=== PATIENT | female | born 1945 | race Caucasian/White ===

== ENCOUNTER → 2017-05-20 12:28 | Outpatient (REF) | payer MEDICARE, SELFPAY ==
[2017-05-21 13:13] LABS: Basophils # 0.1 K/mm3 (0-0.2); Basophils % 0.9 % (0.1-2.0); Eosinophils # 0.5 K/mm3 (0.0-0.4); Eosinophils % 5.2 % (0.1-12.0); Hemoglobin 12.6 g/dL (12.2-16.2); Lymphocytes # 3.1 K/mm3 (0.7-4.5); Lymphocytes % 34.3 K/mm3 (10-50); Mean Corpuscular HGB Conc 30.1 g/dL (31.8-35.4); Mean Corpuscular Hemoglobin 30.6 pg (27.0-31.2); Mean Corpuscular Volume 101.6 fl (81-99); Mean Platelet Volume 9.1 fl (7.4-10.4); Monocytes # 0.4 K/mm3 (0.1-1.0); Monocytes % 4.3 % (1.7-9.3); Neutrophils % 55.2 % (37.0-80.0); Platelet Count 332 K/mm3 (142-424); Red Blood Count 4.13 M/mm3 (4.20-5.40); Red Cell Distribution Width 13.5 % (11.5-17.5); White Blood Count 9.1 K/mm3 (4.8-10.8)
[2017-05-21 13:32] LABS: Alanine Aminotransferase 21 U/L (12-78); Albumin Level 3.7 gm/dL (3.4-5.0); Albumin/Globulin Ratio 1.3 (1.1-1.8); Alkaline Phosphatase 107 U/L (46-116); Anion Gap 14.5 mEq/L (5-15); Aspartate Amino Transferase 10 U/L (15-37); Bilirubin,Total 0.2 mg/dL (0.2-1.0); Blood Urea Nitrogen 14 mg/dL (7-18); Calcium 8.9 mg/dL (8.5-10.1); Carbon Dioxide 25 mmol/L (21.0-32.0); Chloride 105 mmol/L (98-107); Chol/HDL Ratio 3.5 (1-3.5); Cholesterol 153 mg/dL (140-200); Creatinine,Serum 0.97 mg/dL (0.55-1.02); Estimated Glomerular Filt Rate 56 ml/min (>60); GFR (African American) 68 ML/MIN (>60); Globulin 2.8 gm/dl (1.3-3.2); Glucose 96 mg/dL (74-106); HDL Cholesterol 44 mg/dL (29-89); LDL Cholesterol 85 mg/dL (0-130); Potassium 4.5 mmoL/L (3.5-5.1); Sodium 140 mmol/L (136-145); T4 (Thyroxine) 6.6 ug/dl (4.7-13.3); Thyroid Stimulating Hormone 1.14 uIU/ml (0.358-3.740); Total Protein,Serum 6.5 gm/dL (6.4-8.2); Triglycerides 118 mg/dL (30-200); VLDL Cholesterol 24 mg/dL (0-40)
[2017-05-21 13:37] LABS: Hemoglobin A1C 6.1 % (0.0-7.0)
== END ==
LOC: LAB 12:28
PROVIDERS: Visit Provider Nurse Practitioner Family
DX: I10 Essential (primary) hypertension (principal); E11.9 Type 2 diabetes mellitus without complications
CPT/HCPCS: 80053; 80061; 83036; 84436; 84443; 85025

== ENCOUNTER → 2020-03-13 14:59 | Outpatient (CLI) | payer MEDICARE, MEDICAID, SELFPAY ==
[2020-03-13 17:58] LABS: Coronavirus 19 IgG Antibody Negative (Negative); Coronavirus 19 IgM Antibody Negative (Negative)
== END ==
PROVIDERS: Visit Provider Specialist
DX: Z01.818 Encounter for other preprocedural examination (principal); Z03.818 Encounter for observation for suspected exposure to other biological agents ruled out; G47.30 Sleep apnea, unspecified
CPT/HCPCS: 36415; 86328

== ENCOUNTER → 2020-03-14 20:19 | Outpatient (CLI) | payer MEDICARE, MEDICAID, SELFPAY | PROVIDERS: PCP Family Medicine; Visit Provider Specialist | DX: G47.33 Obstructive sleep apnea (adult) (pediatric) (principal) | CPT/HCPCS: 95810 ==

== ENCOUNTER 2020-05-11 01:55 | Emergency (ER) | payer MEDICARE, MEDICAID, SELFPAY ==
[2020-05-11] VITALS (9 sets, daily range): BP systolic 108–178; BP diastolic 62–100; PULSE 64–79; RESP 14–18; TEMP 36.7; O2SAT 95–100; BMI 33.1
--- NOTE | 2020-05-11 01:54 | ECG_ITS ---
APPROVED REPORT Exam: Resting ECG HR:67 bpm ECG Measurements Heart Rate 67 AXES ME 182 P 69 QRSd 84 QRS 68 QT 412 T 58 QTc 435 Conclusion Normal sinus rhythm Normal ECG Electronically signed by : Marty Silva, 05/11/2020 08:52:03
--- NOTE | 2020-05-11 02:04 | XR_ITS ---
PROCEDURE: XR CHEST PORTABLE CLINICAL HISTORY: FALL Posttraumatic pain COMPARISON: CR [id number] XR chest portable from 08/31/2017 FINDINGS: The cardiomediastinal silhouette and pulmonary vascularity are within normal limits. The lungs are clear without infiltrates, suspicious nodules, or pleural effusions. No acute bony abnormalities. IMPRESSION: No acute findings. Dictated by: Dennis Hernandez MD 05/11/2020 04:55 Dennis Hernandez MD in [facility] 05/11/2020 04:55
--- NOTE | 2020-05-11 02:04 | CT_ITS ---
PROCEDURE: CT CERVICAL SPINE WO CON CLINICAL INDICATION: TRAUMA Neck injury with pain, contusion/abrasion or hematoma, cervical sprain/strain COMPARISON: No exams were available for comparison TECHNIQUE: Axial images obtained with sagittal and coronal reformats. All CT scans at the facility use one or more dose reduction, viz: automated exposure control, ma/kV adjustment per patient size (including targeted exams where dose is matched to indication, i.e. head), or iterative reconstruction technique. Axial spiral CT scanning performed of the cervical spine beginning at the base of the skull and continuing to the upper T-spine. 3-D multiplanar reconstruction with 3-D manipulation of volumetric data set in image rendering was completed by the radiologist and/or technologist with the supervision of the radiologist on independent workstation. FINDINGS: No acute fracture or dislocation. There is alignment. There is multilevel cervical spondylosis with advanced discogenic degenerative changes at multiple levels with vertebral body fusion at C4-C5 with canal stenosis at C4-C5 and C5-C6. The lung apices are clear. There is mild cervical curvature convex right IMPRESSION: 1. No acute fracture. 2. Cervical spondylosis Dictated by: Dennis Hernandez MD 05/11/2020 05:00 Dennis Hernandez MD in [facility] 05/11/2020 05:00
--- NOTE | 2020-05-11 02:04 | XR_ITS ---
PROCEDURE: XR PELVIS 1-2V CLINICAL INDICATION: FALL Posttraumatic pain COMPARISON: No exams were available for comparison TECHNIQUE: XR Pelvis AP View FINDINGS: There are mild osteoarthritic changes of the hips No acute fracture or dislocation. No lytic or blastic change. IMPRESSION: No acute findings. Dictated by: Dennis Hernandez MD 05/11/2020 04:54 Dennis Hernandez MD in [facility] 05/11/2020 04:54
--- NOTE | 2020-05-11 02:04 | CT_ITS ---
PROCEDURE: CT HEAD/BRAIN WO CON CLINICAL INDICATION: TRAUMA Head injury with headache/pain, contusion, abrasion or hematoma COMPARISON: No exams were available for comparison TECHNIQUE: Axial images obtained. All CT scans at the facility use one or more dose reduction, viz: automated exposure control, ma/kV adjustment per patient size (including targeted exams where dose is matched to indication, i.e. head), or iterative reconstruction technique. FINDINGS: No midline shift, mass effect, intracranial hemorrhage, hydrocephalus, or extra-axial fluid collection is evident. Hyperostosis frontalis interna. Minimal scalp swelling centrally in the parietal occipital region. No mastoid effusion. No sinus air-fluid level. IMPRESSION: No acute intracranial finding Dictated by: Dennis Hernandez MD 05/11/2020 04:56 Dennis Hernandez MD in [facility] 05/11/2020 04:56
[2020-05-11 02:28] LABS: Alanine Aminotransferase 16 U/L (12-78); Albumin Level 4.3 g/dl (3.5-5.0); Alkaline Phosphatase 105 U/L (38-126); Anion Gap 9.9 mEq/L (5-15); Aspartate Amino Transferase 24 U/L (14-36); Bilirubin,Direct 0.1 mg/dl (0.0-0.4); Bilirubin,Indirect 0.4 mg/dL (0.0-0.9); Bilirubin,Total 0.5 mg/dl (0.2-1.3); Bilirubin,Unconjugated 0.5 mg/dL (0.0-1.1); Blood Urea Nitrogen 16 mg/dl (7-17); Calcium 9.8 mg/dl (8.4-10.2); Carbon Dioxide 28 mmol/L (22.0-30.0); Chloride 105 mmol/L (98-107); Creatinine Clearance Estimated 59 mL/min (50-200); Estimated Glomerular Filt Rate 54 ml/min (>60); GFR (African American) 65 ML/MIN (>60); Glucose 155 mg/dl (74-100); Potassium 3.9 mmoL/L (3.5-5.1); Sodium 139 mmol/L (136-145); Total Protein,Serum 7.2 g/dl (6.3-8.2)
[2020-05-11 02:30] LABS: Basophils # 0.1 K/mm3 (0-0.2); Eosinophils # 0.3 K/mm3 (0.0-0.4); Eosinophils % 4.3 % (0.1-12.0); Hematocrit 42.4 % (37.0-47.0); Hemoglobin 13.2 g/dL (12.2-16.2); Lymphocytes # 3.4 K/mm3 (0.7-4.5); Lymphocytes % 43.7 % (10-50); Mean Corpuscular HGB Conc 31.2 g/dL (31.8-35.4); Mean Corpuscular Hemoglobin 29.7 pg (27.0-31.2); Mean Corpuscular Volume 95.2 fl (81-99); Mean Platelet Volume 7.2 fl (7.4-10.4); Monocytes # 0.4 K/mm3 (0.1-1.0); Monocytes % 5.2 % (1.7-9.3); Neutrophils # 3.6 K/mm3 (1.8-7.8); Neutrophils % 45.9 % (37.0-80.0); Platelet Count 283 K/mm3 (142-424); Red Blood Count 4.45 M/mm3 (4.20-5.40); Red Cell Distribution Width 14.1 % (11.5-17.5); White Blood Count 7.9 K/mm3 (4.8-10.8)
[2020-05-11 02:40] LABS: Troponin I 0.06 ng/ml (0.00-0.034)
[2020-05-11 03:38] LABS: Adenovirus,PCR Not Detected (NotDetected); Bordetella Pertussis Not Detected (NotDetected); Chlamydophila Pneumoniae, PCR Not Detected (NotDetected); Coronavirus 19, PCR Not Detected (NotDetected); Coronavirus 229E Not Detected (NotDetected); Coronavirus NL63 Not Detected (NotDetected); Coronavirus OC43 Not Detected (NotDetected); Coronovirus HKU1,PCR Not Detected (NotDetected); Human Metapneumovirus Not Detected (NotDetected); Influenza A, PCR Not Detected (NotDetected); Influenza AH1, 2009 Not Detected (NotDetected); Influenza AH1, PCR Not Detected (NotDetected); Influenza AH3,PCR Not Detected (NotDetected); Influenza B, PCR Not Detected (NotDetected); Mycoplasma Pneumoniae, PCR Not Detected (NotDetected); Parainfluenza 1, PCR Not Detected (NotDetected); Parainfluenza 2, PCR Not Detected (NotDetected); Parainfluenza 3, PCR Not Detected (NotDetected); Parainfluenza 4, PCR Not Detected (NotDetected); Respiratory Syncytial Virus Not Detected (NotDetected); Rhinovirus/Enterovirus Not Detected (NotDetected)
--- NOTE | 2020-05-11 04:08 | HMH.EDSYNC ---
ED Disposition Clinical Impression: Cervical spondylosis Syncopal episodes Qualifiers: Syncope type: unspecified Qualified Code(s): R55 - Syncope and collapse Head contusion Qualifiers: Encounter type: initial encounter Contusion of head detail: scalp Qualified Code(s): S00.03XA - Contusion of scalp, initial encounter Disposition: Home, Self-Care Condition on Discharge: Good Instructions: DI for Syncope in Adults (Fainting) Additional Instructions: fluids and call pcp for follow up Referrals: Adrianna Landaverde MD [Primary Care Provider] - - Critical Care Critical Care Time: No Attestation: On 05/11/20, the high probability of a clinically significant, sudden or life threatening deterioration of the following system(s) required my full and direct attention, intervention and personal management. The time I documented below is in addition to time spent performing reported procedures but includes the following listed in this critical care notation. Medical Decision Making - Medical Records Medical records reviewed: Yes: I reviewed the patient's medical records. - [place] Inquiry Pt receiving controlled substance: No Vital Signs: 05/11/20 01:56 05/11/20 02:30 05/11/20 03:00 Temperature 98.0 F Temperature Source Oral Pulse Rate [Right Brachial] 65 69 66 Respiratory Rate 14 17 18 Blood Pressure [Right Arm] 147/80 H 149/88 H 171/99 H Blood Pressure Mean [Right Arm] 102 108 123 Blood Pressure Source [Right Arm] Automatic Cuff Automatic Cuff Automatic Cuff Blood Pressure Position [Right Arm] Sitting Supine Supine 02 Sat by Pulse Oximetry 100 98 98 Oxygen Delivery Method Room Air Room Air Room Air 05/11/20 03:30 05/11/20 04:00 05/11/20 04:30 Temperature Temperature Source Pulse Rate [Right Brachial] 68 74 64 Respiratory Rate 17 15 17 Blood Pressure [Right Arm] 176/100 H 178/98 H 108/72 L Blood Pressure Mean [Right Arm] 125 124 84 Blood Pressure Source [Right Arm] Automatic Cuff Automatic Cuff Automatic Cuff Blood Pressure Position [Right Arm] Supine Supine Supine 02 Sat by Pulse Oximetry 98 96 98 Oxygen Delivery Method Room Air Room Air Room Air 05/11/20 05:00 05/11/20 05:30 Temperature Temperature Source Pulse Rate [Right Brachial] 72 71 Respiratory Rate 17 16 Blood Pressure [Right Arm] 114/62 119/64 Blood Pressure Mean [Right Arm] 79 82 Blood Pressure Source [Right Arm] Automatic Cuff Automatic Cuff Blood Pressure Position [Right Arm] Supine Sitting 02 Sat by Pulse Oximetry 95 96 Oxygen Delivery Method Room Air Room Air - Lab Data Lab results reviewed: Yes: I reviewed the patient's lab results. Lab Results 05/11/20 02:00: WBC 7.9, RBC 4.45, Hgb 13.2, Hct 42.4, MCV 95.2, MCH 29.7, MCHC 31.2 L, RDW 14.1, Plt Count 283, MPV 7.2 L, Neut % (Auto) 45.9, Lymph % (Auto) 43.7, [place] % (Auto) 5.2, Eos % (Auto) 4.3, Baso % (Auto) 1.0, Neut # (Auto) 3.6, Lymph # (Auto) 3.4, [place] # (Auto) 0.4, Eos # (Auto) 0.3, Baso # (Auto) 0.1 05/11/20 02:00: Sodium 139, Potassium 3.9, Chloride 105, Carbon Dioxide 28, Anion Gap 9.9, BUN 16, Creatinine 1.00, Estimated Creat Clear 59, Estimated GFR 54 L, Est GFR ( Amer) 65, Glucose 155 H, Calcium 9.8, Total Bilirubin 0.5, Direct Bilirubin 0.1, Conjugated Bilirubin 0.0, Indirect Bilirubin 0.4, Unconjugated Bilirubin 0.5, AST 24, ALT 16, Alkaline Phosphatase 105, Troponin I 0.06 H, Total Protein 7.2, Albumin 4.3 05/11/20 02:00: NT-Pro-B Natriuret Pep 23.7 05/11/20 03:27: Chlamy pneumoniae PCR Not detected, Adenovirus (PCR) Not detected, B. pertussis DNA (PCR) Not detected, Coronavirus OC43 (PCR) Not detected, Coronavirus HKU1 (PCR) Not detected, Coronavirus 229E (PCR) Not detected, SARS-CoV-2 (PCR) Not detected, Coronavirus NL63 (PCR) Not detected, Human Metapneumovir PCR Not detected, Influenza A (H1) PCR Not detected, Influ A (H1N1/09) PCR Not detected, Influenza A (H3) PCR Not detected, Influenza Type A (PCR) Not detected, Influenza Type B (PCR) Not detected, M
[2020-05-11 04:17] LABS: NT Pro Brain Natriuretic Pep. 23.7 pg/mL (0-450)
[2020-05-11 04:20] LABS: Microscopic, Urine URINE MICROSCOPIC (MICROSCOPIC)
[2020-05-11 04:24] LABS: Appearance,Urine CLEAR (Clear); Bilirubin,Urine Negative (Negative); Blood, Urine Negative (Negative); Color,Urine YELLOW (Yellow); Glucose,Urine (UA) 3+ (Negative); Ketones,Urine Negative (Negative); Leukocyte Esterase,Urine Negative (Negative); Nitrate,Urine Negative (Negative); PH,Urine 6.5 (5.0-8.5); Protein,Urine Negative (Negative); Urobilinogen,Urine 0.2 EU/dl (0.2)
[2020-05-11 04:34] LABS: Bacteria,Urine Trace /lpf
--- NOTE | 2020-05-11 05:28 | PC.NURSE ---
called Kaleb per patients request for a ride home. His number is [phone]
[2020-05-11 06:14] LABS: Troponin I < 0.01 ng/ml (0.00-0.034)
== END 2020-05-11 06:28 | disposition home or self-care (01) ==
PROVIDERS: Emergency Provider Emergency Medicine; PCP Family Medicine
DX: M47.812 Spondylosis without myelopathy or radiculopathy, cervical region (principal); S00.03XA Contusion of scalp, initial encounter; W18.39XA Other fall on same level, initial encounter; Y92.019 Unspecified place in single-family (private) house as the place of occurrence of the external cause; F41.8 Other specified anxiety disorders; Z86.73 Personal history of transient ischemic attack (TIA), and cerebral infarction without residual deficits; E11.9 Type 2 diabetes mellitus without complications; E78.5 Hyperlipidemia, unspecified; R06.02 Shortness of breath; Z79.899 Other long term (current) drug therapy
CPT/HCPCS: 70450; 71045; 72125; 72170; 80048; 80076; 81001; 83880; 84484; 85025; 87581; 87633; 87798; 93005; 99283

== ENCOUNTER → 2020-05-31 12:49 | Outpatient (CLI) | payer MEDICARE, MEDICAID, SELFPAY | PROVIDERS: PCP Family Medicine; Visit Provider Nurse Practitioner Family | DX: G47.00 Insomnia, unspecified (principal); G47.33 Obstructive sleep apnea (adult) (pediatric) | CPT/HCPCS: 94762 ==

== ENCOUNTER 2021-03-01 01:08 | Emergency (ER) | payer MEDICARE, MEDICAID, SELFPAY ==
[2021-03-01 01:10] VITALS: BP 145/86; PULSE 89; RESP 22; TEMP 36.6; O2SAT 98; BMI 30.7
[2021-03-01 01:22] VITALS: BMI 28.3
--- NOTE | 2021-03-01 01:27 | XR_ITS ---
PROCEDURE INFORMATION: Exam: XR Chest Exam date and time: 03/01/2021 1:27 AM Age: 75 years old Clinical indication: Cough and shortness of breath; Patient HX: Cough, congestion. R/O covid; Additional info: Short of breath TECHNIQUE: Imaging protocol: XR of the chest. Views: 2 views. COMPARISON: CR XR CHEST PORTABLE 05/11/2020 2:31 AM FINDINGS: Lungs: Unremarkable. No consolidation. Pleural spaces: Unremarkable. No pleural effusion. No pneumothorax. Heart/Mediastinum: Unremarkable. No cardiomegaly. Bones/joints: Degenerative changes of the spine and shoulders. IMPRESSION: No evidence of acute intrathoracic disease.
--- NOTE | 2021-03-01 01:28 | ECG_ITS ---
APPROVED REPORT Exam: Resting ECG HR:79 bpm ECG Measurements Heart Rate 79 AXES VA 178 P 41 QRSd 78 QRS 58 QT 380 T 77 QTc 435 Conclusion Normal sinus rhythm with sinus arrhythmia Nonspecific T wave abnormality Abnormal ECG Electronically signed by : Marty Silva MD 03/03/2021 06:23:39
[2021-03-01 01:41] LABS: Basophils # 0.1 K/mm3 (0-0.2); Basophils % 2.2 % (0.1-2.0); Eosinophils # 0.4 K/mm3 (0.0-0.4); Eosinophils % 6.1 % (0.1-12.0); Hematocrit 43.1 % (37.0-47.0); Hemoglobin 14.4 g/dL (12.2-16.2); Lymphocytes % 35.5 % (10-50); Mean Corpuscular HGB Conc 33.3 g/dL (31.8-35.4); Mean Corpuscular Hemoglobin 30.4 pg (27.0-31.2); Mean Corpuscular Volume 91.3 fl (81-99); Mean Platelet Volume 7.9 fl (7.4-10.4); Monocytes # 0.5 K/mm3 (0.1-1.0); Monocytes % 9.4 % (1.7-9.3); Neutrophils # 2.7 K/mm3 (1.8-7.8); Neutrophils % 46.8 % (37.0-80.0); Platelet Count 245 K/mm3 (142-424); Red Blood Count 4.72 M/mm3 (4.20-5.40); Red Cell Distribution Width 13.5 % (11.5-17.5); White Blood Count 5.7 K/mm3 (4.8-10.8)
[2021-03-01 01:42] LABS: Coronavirus 19, PCR Not Detected (NotDetected); Influenza A, PCR Not Detected (NotDetected); Influenza B, PCR Not Detected (NotDetected)
[2021-03-01 01:44] LABS: Lactic Acid 0.6 mmol/L (0.7-2.1)
[2021-03-01 01:45] LABS: Alanine Aminotransferase 22 U/L (12-78); Albumin Level 4.6 g/dl (3.5-5.0); Albumin/Globulin Ratio 1.6 (1.1-1.8); Alkaline Phosphatase 108 U/L (38-126); Amylase 94 U/L (30-110); Anion Gap 10.6 mEq/L (5-15); Aspartate Amino Transferase 35 U/L (14-36); Bilirubin,Direct 0.2 mg/dl (0.0-0.4); Bilirubin,Indirect 0.2 mg/dL (0.0-0.9); Bilirubin,Total 0.4 mg/dl (0.2-1.3); Bilirubin,Unconjugated 0.2 mg/dL (0.0-1.1); Blood Urea Nitrogen 24 mg/dl (7-17); Calcium 9.8 mg/dl (8.4-10.2); Carbon Dioxide 30 mmol/L (22.0-30.0); Chloride 101 mmol/L (98-107); Creatinine Clearance Estimated 51 mL/min (50-200); Estimated Glomerular Filt Rate 54 ml/min (>60); GFR (African American) 65 ML/MIN (>60); Globulin 2.9 g/dL (1.3-3.2); Glucose 135 mg/dl (74-100); Lipase 108 U/L (23-300); Potassium 3.6 mmoL/L (3.5-5.1); Sodium 138 mmol/L (136-145); Total Protein,Serum 7.5 g/dl (6.3-8.2)
[2021-03-01 01:59] LABS: NT Pro Brain Natriuretic Pep. 53.1 pg/mL (0-450)
[2021-03-01 02:19] LABS: Troponin I < 0.01 ng/ml (0.00-0.034)
[2021-03-01 02:26] VITALS: BP 125/81; PULSE 81; O2SAT 98
--- NOTE | 2021-03-01 02:28 | HMH.EDURI ---
ED Disposition Clinical Impression: Bronchitis Disposition: Home, Self-Care Condition on Discharge: Good Instructions: DI for Acute Bronchitis Additional Instructions: use meds and call pcp for follow up Prescriptions: cephALEXin [cephALEXin 500mg capsule*] 500 mg PO TID #30 cap Transmission Status: Pending to [facility] #[id number] Referrals: Adrianna Landaverde MD [Primary Care Provider] - - Critical Care Critical Care Time: No Attestation: On 03/01/21, the high probability of a clinically significant, sudden or life threatening deterioration of the following system(s) required my full and direct attention, intervention and personal management. The time I documented below is in addition to time spent performing reported procedures but includes the following listed in this critical care notation. Medical Decision Making - Medical Records Medical records reviewed: Yes: I reviewed the patient's medical records. - [place] Inquiry Pt receiving controlled substance: No Vital Signs: 03/01/21 01:10 Temperature 97.9 F Temperature Source Oral Pulse Rate [Right] 89 Respiratory Rate 22 Blood Pressure [Right Arm] 145/86 H Blood Pressure Mean [Right Arm] 105 Blood Pressure Source [Right Arm] Automatic Cuff 02 Sat by Pulse Oximetry 98 Oxygen Delivery Method Room Air - Lab Data Lab results reviewed: Yes: I reviewed the patient's lab results. Lab Results 03/01/21 01:20: SARS-CoV-2 (PCR) Not detected, Influenza A Untype (PCR) Not detected, Influenza Type B (PCR) Not detected 03/01/21 01:28: WBC 5.7, RBC 4.72, Hgb 14.4, Hct 43.1, MCV 91.3, MCH 30.4, MCHC 33.3, RDW 13.5, Plt Count 245, MPV 7.9, Neut % (Auto) 46.8, Lymph % (Auto) 35.5, [place] % (Auto) 9.4 H, Eos % (Auto) 6.1, Baso % (Auto) 2.2 H, Neut # (Auto) 2.7, Lymph # (Auto) 2.0, [place] # (Auto) 0.5, Eos # (Auto) 0.4, Baso # (Auto) 0.1 03/01/21 01:28: Sodium 138, Potassium 3.6, Chloride 101, Carbon Dioxide 30, Anion Gap 10.6, BUN 24 H, Creatinine 1.00, Estimated Creat Clear 51, Estimated GFR 54 L, Est GFR ( Amer) 65, Glucose 135 H, Calcium 9.8, Total Bilirubin 0.4, Direct Bilirubin 0.2, Conjugated Bilirubin 0.0, Indirect Bilirubin 0.2, Unconjugated Bilirubin 0.2, AST 35, ALT 22, Alkaline Phosphatase 108, Troponin I < 0.01, Total Protein 7.5, Albumin 4.6, Globulin 2.9, Albumin/Globulin Ratio 1.6, Amylase 94, Lipase 108 03/01/21 01:28: Lactate 0.6 L 03/01/21 01:28: NT-Pro-B Natriuret Pep 53.1 Result diagrams: 03/01/21 01:28 03/01/21 01:28 Orders (Tests/Meds): ED MEDICATIONS Generic Name Dose Route Start Last Admin Trade Name Freq PRN Reason Stop Dose Admin Sodium Chloride 1,000 mls @ 999 mls/hr 03/01/21 01:30 03/01/21 02:00 Sod Chlor 0.9% 1000ml Bag IV 03/01/21 02:30 999 mls/hr .Q1H1M MARTHA Administration Discontinued Medications Generic Name Dose Route Start Last Admin Trade Name Freq PRN Reason Stop Dose Admin Dexamethasone Sodium Phosphate 10 mg 03/01/21 02:04 03/01/21 02:17 Dexamethasone 4mg/Ml 5ml Mdv IV 03/01/21 02:05 10 mg ONCE ONE Administration Methylprednisolone Sodium Succinate 125 mg 03/01/21 01:27 03/01/21 02:17 Methylprednisolone Sod Succ 125mg Vial IV 03/01/21 01:28 Not Given ONCE ONE Ondansetron HCl 4 mg 03/01/21 02:03 03/01/21 02:18 Ondansetron 4mg/2ml Vial IV 03/01/21 02:04 4 mg ONCE ONE Administration ORDERS Category Date Time Status XR chest 2V Stat Exams 03/01/21 01:27 Taken Complete Blood Count Auto Diff Stat Lab 03/01/21 01:28 Results Erythrocyte Sedimentation Rate Stat Lab 03/01/21 01:28 Results Troponin I Q3H Lab 03/01/21 04:30 Ordered Troponin I Q3H Lab 03/01/21 07:30 Ordered Urinalysis and Microscopic Stat Lab 12/16/21 01:27 Ordered - Radiology Data #1 Image(s): Chest Image Reviewed: Yes I have reviewed radiologist's interpretation Preliminary Findings: Normal/NAD - ECG Data Tracing #1 Normal Sinus Rhythm: Yes Ischemic changes:
[2021-03-01 02:30] VITALS: BP 120/81; PULSE 82; O2SAT 95
[2021-03-01 02:40] LABS: Erythrocyte Sedimentation Rate 61 mm/hr (0-30)
[2021-03-01 03:00] VITALS: BP 130/65; PULSE 81; O2SAT 95
[2021-03-01 03:05] VITALS: BP 130/65; PULSE 80; RESP 20; TEMP 36.8; O2SAT 96
== END 2021-03-01 03:10 | disposition home or self-care (01) ==
PROVIDERS: Emergency Provider Emergency Medicine; PCP Family Medicine
DX: J20.9 Acute bronchitis, unspecified (principal); Z20.822 Contact with and (suspected) exposure to COVID-19; Z79.899 Other long term (current) drug therapy; I10 Essential (primary) hypertension; E78.5 Hyperlipidemia, unspecified; E11.9 Type 2 diabetes mellitus without complications; F41.8 Other specified anxiety disorders
CPT/HCPCS: 71046; 80053; 80076; 82150; 83605; 83690; 83880; 84484; 85025; 85651; 93005; 96365; 96367; 96375; 99283; C9803; J2405; U0003; U0005

== ENCOUNTER 2021-08-17 13:25 | Emergency (ER) | payer MEDICARE, MEDICAID, SELFPAY ==
[2021-08-17 13:20] VITALS: BP 142/85; PULSE 88; RESP 16; TEMP 36.5; O2SAT 98; BMI 32.4
--- NOTE | 2021-08-17 13:31 | ECG_ITS ---
APPROVED REPORT Exam: Resting ECG HR:81 bpm ECG Measurements Heart Rate 81 AXES SC 186 P 52 QRSd 82 QRS 59 QT 367 T 65 QTc 404 Conclusion SINUS RHYTHM WITH SINUS ARRHYTHMIA NORMAL ECG UNCONFIRMED REPORT Electronically signed by : Marty Silva MD 08/17/2021 17:10:16
[2021-08-17 13:37] LABS: POC Glucose,Bedside 153 (70-110)
[2021-08-17 13:57] LABS: Chloride 104 mmol/L (98-107); Potassium 3.6 mmoL/L (3.5-5.1); Sodium 141 mmol/L (136-145)
[2021-08-17 14:00] LABS: Alanine Aminotransferase 22 U/L (12-78); Albumin Level 4.2 g/dl (3.5-5.0); Albumin/Globulin Ratio 1.6 (1.1-1.8); Alkaline Phosphatase 117 U/L (38-126); Anion Gap 11.6 mEq/L (5-15); Aspartate Amino Transferase 32 U/L (14-36); Bilirubin,Total 0.5 mg/dl (0.2-1.3); Blood Urea Nitrogen 11 mg/dl (7-17); Carbon Dioxide 29 mmol/L (22.0-30.0); Creatinine Clearance Estimated 56 mL/min (50-200); Estimated Glomerular Filt Rate 70 ml/min (>60); GFR (African American) 84 ML/MIN (>60); Globulin 2.7 g/dL (1.3-3.2); Total Protein,Serum 6.9 g/dl (6.3-8.2)
[2021-08-17 14:01] VITALS: BP 133/74; PULSE 83; RESP 13; O2SAT 97
[2021-08-17 14:01] LABS: Calcium 9.6 mg/dl (8.4-10.2); Glucose 165 mg/dl (74-100)
--- NOTE | 2021-08-17 14:17 | PC.NURSE ---
pt ambulated to restroom
[2021-08-17 14:18] LABS: Basophils # 0.1 K/mm3 (0-0.2); Basophils % 1.8 % (0.1-2.0); Eosinophils # 0.3 K/mm3 (0.0-0.4); Eosinophils % 4.2 % (0.1-12.0); Hematocrit 38.6 % (37.0-47.0); Hemoglobin 12.9 g/dL (12.2-16.2); Lymphocytes # 1.8 K/mm3 (0.7-4.5); Lymphocytes % 24.2 % (10-50); Mean Corpuscular HGB Conc 33.4 g/dL (31.8-35.4); Mean Corpuscular Hemoglobin 31.2 pg (27.0-31.2); Mean Corpuscular Volume 93.5 fl (81-99); Mean Platelet Volume 7.9 fl (7.4-10.4); Monocytes # 0.5 K/mm3 (0.1-1.0); Monocytes % 6.9 % (1.7-9.3); Neutrophils # 4.6 K/mm3 (1.8-7.8); Platelet Count 256 K/mm3 (142-424); Red Blood Count 4.13 M/mm3 (4.20-5.40); Red Cell Distribution Width 13.2 % (11.5-17.5); White Blood Count 7.3 K/mm3 (4.8-10.8)
--- NOTE | 2021-08-17 14:57 | HMH.EDGENADL ---
ED Disposition Clinical Impression: Unsteadiness on feet Fall Qualifiers: Encounter type: initial encounter Qualified Code(s): W19.XXXA - Unspecified fall, initial encounter Forehead contusion Qualifiers: Encounter type: initial encounter Qualified Code(s): S00.83XA - Contusion of other part of head, initial encounter Disposition: Home, Self-Care Condition on Discharge: Good Instructions: DI for Closed Head Injury, How to Prevent Falls Additional Instructions: Additional instructions for HEAD INJURY: See your physician as soon as possible for further evaluation. Return immediately if severe headache, vomiting, problems with vision or speech, numbness or weakness of the extremities, or severe neck pain. Referrals: Adrianna Landaverde MD [Primary Care Provider] - - Critical Care Critical Care Time: No Attestation: On 08/17/21, the high probability of a clinically significant, sudden or life threatening deterioration of the following system(s) required my full and direct attention, intervention and personal management. The time I documented below is in addition to time spent performing reported procedures but includes the following listed in this critical care notation. Medical Decision Making - [place] Inquiry Pt receiving controlled substance: No Vital Signs: 08/17/21 13:20 08/17/21 14:01 Temperature 97.7 F Temperature Source Oral Pulse Rate 83 Pulse Rate [Radial] 88 Respiratory Rate 16 13 Blood Pressure 133/74 Blood Pressure [Right Arm] 142/85 H Blood Pressure Mean 93 Blood Pressure Mean [Right Arm] 104 Blood Pressure Position [Right Arm] Sitting 02 Sat by Pulse Oximetry 98 97 Oxygen Delivery Method Room Air - Lab Data Lab Results 08/17/21 13:30: POC Glucose 153 H 08/17/21 13:40: WBC 7.3, RBC 4.13 L, Hgb 12.9, Hct 38.6, MCV 93.5, MCH 31.2, MCHC 33.4, RDW 13.2, Plt Count 256, MPV 7.9, Neut % (Auto) 63.0, Lymph % (Auto) 24.2, [place] % (Auto) 6.9, Eos % (Auto) 4.2, Baso % (Auto) 1.8, Neut # (Auto) 4.6, Lymph # (Auto) 1.8, [place] # (Auto) 0.5, Eos # (Auto) 0.3, Baso # (Auto) 0.1 06/03/22 13:40: Sodium 141, Potassium 3.6, Chloride 104, Carbon Dioxide 29, Anion Gap 11.6, BUN 11, Creatinine 0.80, Estimated Creat Clear 56, Estimated GFR 70, Est GFR ( Amer) 84, Glucose 165 H, Calcium 9.6, Total Bilirubin 0.5, AST 32, ALT 22, Alkaline Phosphatase 117, Total Protein 6.9, Albumin 4.2, Globulin 2.7, Albumin/Globulin Ratio 1.6 08/17/21 13:54: Urine Color Yellow, Urine Appearance Clear, Urine pH 7.0, Ur Specific [place] 1.015, Urine Protein Negative, Urine Glucose (UA) Negative, Urine Ketones Negative, Urine Blood Negative, Urine Nitrate Negative, Urine Bilirubin Negative, Urine Urobilinogen 2.0, Ur Leukocyte Esterase Negative, Urine RBC None, Urine WBC None, Ur Squamous Epith Cells Occasional, Urine Bacteria None Result diagrams: 08/17/21 13:40 08/17/21 13:40 - CT Data CT Scan: Head Time Received: 16:[address] Reviewed: Yes: I have viewed the radiologist's interpretation Findings Narrative: Procedure(s): CT head/brain wo con Accession Number(s): [id number] cc: Darron Hernández MD; Adrianna Landaverde MD; Denis Long MD~ FINAL REPORT CLINICAL HISTORY: head injury, balance off, fell and hit head COMPARISON: 05/11/2020 FINDINGS: Axial images of the head were obtained without contrast. Coronal reformatted images were also obtained.This study was performed with techniques to keep radiation doses as low as reasonably achievable (ALARA). Individualized dose reduction techniques using automated exposure control or adjustment of mA and/or kV according to the patient''s size were employed. There is no evidence of intracranial hemorrhage or mass. The ventricular size is within normal limits. There is no evidence of shift of the midline structures. No abnormal extra axial fluid collection is identified. No skull abnormality is seen on the bone window images. IMPRESSION: No acute intracrani
--- NOTE | 2021-08-17 15:02 | CT_ITS ---
FINAL REPORT CLINICAL HISTORY: head injury, balance off, fell and hit head COMPARISON: 05/11/2020 FINDINGS: Axial images of the head were obtained without contrast. Coronal reformatted images were also obtained.This study was performed with techniques to keep radiation doses as low as reasonably achievable (ALARA). Individualized dose reduction techniques using automated exposure control or adjustment of mA and/or kV according to the patient''s size were employed. There is no evidence of intracranial hemorrhage or mass. The ventricular size is within normal limits. There is no evidence of shift of the midline structures. No abnormal extra axial fluid collection is identified. No skull abnormality is seen on the bone window images. IMPRESSION: No acute intracranial abnormality. Reviewed, Interpreted and Dictated by Darron Hernández III, MD Transcribed by Alexia Farris Authenticated and [facility]
[2021-08-17 15:42] LABS: Microscopic, Urine URINE MICROSCOPIC (MICROSCOPIC)
[2021-08-17 15:47] LABS: Appearance,Urine CLEAR (Clear); Bilirubin,Urine Negative (Negative); Blood, Urine Negative (Negative); Color,Urine YELLOW (Yellow); Glucose,Urine (UA) Negative (Negative); Ketones,Urine Negative (Negative); Leukocyte Esterase,Urine Negative (Negative); Nitrate,Urine Negative (Negative); Protein,Urine Negative (Negative); Specific Gravity, Urine 1.015 (1.005-1.030)
--- NOTE | 2021-08-17 15:58 | PC.NURSE ---
pt and family updated on plan of care
[2021-08-17 16:20] LABS: Squamous Epithelial Cell,Urine Occasional #/hpf (0-5)
[2021-08-17 19:27] VITALS: BP 132/78; PULSE 74; RESP 16; TEMP 36.6; O2SAT 98
== END 2021-08-17 19:29 | disposition home or self-care (01) ==
PROVIDERS: Emergency Provider Emergency Medicine; PCP Family Medicine
DX: S00.83XA Contusion of other part of head, initial encounter (principal); W18.39XA Other fall on same level, initial encounter; Z91.81 History of falling; J45.909 Unspecified asthma, uncomplicated; F41.9 Anxiety disorder, unspecified; F32.A Depression, unspecified; E11.9 Type 2 diabetes mellitus without complications; E78.5 Hyperlipidemia, unspecified; I10 Essential (primary) hypertension; M81.0 Age-related osteoporosis without current pathological fracture; Z85.9 Personal history of malignant neoplasm, unspecified; Z86.73 Personal history of transient ischemic attack (TIA), and cerebral infarction without residual deficits
CPT/HCPCS: 70450; 80053; 81001; 82962; 85025; 93005; 99284

== ENCOUNTER 2022-10-18 09:15 | Emergency (ER) | payer MEDICARE, MEDICAID, SELFPAY ==
[2022-10-18] VITALS (8 sets, daily range): BP systolic 133–151; BP diastolic 68–78; PULSE 61–67; RESP 16–20; TEMP 36.4; O2SAT 95–98; BMI 31.4
--- NOTE | 2022-10-18 09:25 | CT_ITS ---
FINAL REPORT TECHNIQUE: Axial imaging of the lumbar spine was obtained without contrast. Sagittal and coronal reformatted images were also obtained and reviewed. This study was performed with techniques to keep radiation doses as low as reasonably achievable (ALARA). Individualized dose reduction techniques using automated exposure control or adjustment of mA and/or kV according to the patient's size were employed. CLINICAL HISTORY: fall, pain FINDINGS: There is no fracture. There is mild anterolisthesis of L3 on 4 and L4 on 5. There is multilevel mild neural foraminal narrowing. There is severe left renal atrophy. IMPRESSION: Multilevel degenerative change without acute bony abnormality. Reviewed, Interpreted and Dictated by Darron Hernández III, MD Transcribed by Alexia Farris Authenticated and [facility]
--- NOTE | 2022-10-18 09:32 | HMH.EDGENADL ---
Discharge Plan Disposition Patient Disposition: Home, Self-Care Condition: Good Prescriptions Prescriptions: No Action magnesium chloride 64 mg tablet,extended release 64 mg tablet extended release 64 mg PO DAILY Myrbetriq 50 mg tablet extended release 24 hr 50 mg PO DAILY Patient Comments: TAKE 1 TABLET BY MOUTH DAILY. STOP TOVIAZ hydroxyzine HCl 25 mg tablet 25 mg PO BID Patient Comments: TAKE 1/2 TO 1 TABLET BY MOUTH THREE TIMES DAILY NEEDED FOR ITCHING rosuvastatin 20 mg tablet 20 mg PO DAILY Patient Comments: TAKE 1 TABLET BY MOUTH DAILY eszopiclone [Lunesta] 1 mg tablet 1 mg PO HS Qty: 30 5RF Rx Instructions: 1 mg po qhs at 9:00PM (DME) [employer] 14 Day Sensor Kit See Rx Instructions .ROUTE .MEDSUPPLY Qty: 1 Rx Instructions: As directed duloxetine 30 mg capsule,delayed release(DR/EC) 30 mg PO DAILY alendronate 70 mg tablet 70 mg PO WEEKLY indomethacin 25 mg capsule 25 mg PO BID MDD 50 mg Qty: 60 3RF Rx Instructions: administer with food or milk aspirin [Adult Low Dose Aspirin] 81 mg tablet,delayed release (DR/EC) 81 mg PO DAILY sitagliptin phosphate 100 mg tablet 100 mg PO DAILY Patient Comments: TK 1 T PO D tramadol 50 mg tablet 50 mg PO BID PRN (Reason: pain) cyclobenzaprine 5 mg tablet 5 mg PO BID PRN (Reason: Muscle Pain) Patient Comments: TAKE 1 TABLET BY MOUTH THREE TIMES DAILY NEEDED FOR MUSCLE SPASMS meclizine 25 mg tablet 25 mg PO PRN montelukast 10 MG tablet 10 mg PO DAILY duloxetine 60 mg capsule,delayed release(DR/EC) 90 mg PO DAILY Referrals Follow up/Referrals: Adrianna Landaverde MD [Primary Care Provider] - See instructions Activity Restrictions/Add. Instructions Additional Instructions/Restrictions: Please expect pain and some soreness you may take [id number] medications as needed for your symptoms. I would recommend you follow-up with primary care doctor and/or a designer/writer to get an outpatient Holter monitor and an echo to further evaluate for structural abnormalities or electrical conduction abnormalities of your heart. Return with any ongoing or recurrent episodes of passing out chest pain or any other concerns. Clinical Impressions Clinical Impression: Near syncope Fall Qualifiers: Encounter type: initial encounter Qualified Code(s): W19.XXXA - Unspecified fall, initial encounter Blunt injury of back Qualifiers: Encounter type: initial encounter Qualified Code(s): S39.92XA - Unspecified injury of lower back, initial encounter Discharge ED Provider: John Marie General Adult HPI General Chief complaint: Fall Stated complaint: [id number] 7:00 back pain home fall Time Seen by Provider: 10/18/22 09:20 History of Present Illness HPI narrative: Patient is a 77-year-old female with a history of hypertension diabetes hyperlipidemia presenting today with back pain after a fall. She states that she felt very woozy and that she fell backwards striking the mid to low aspect of her back on the front of the chair. She states she has pain throughout the entire region of her lower back and is severe. No history of any lower extremity paralysis urinary or bowel incontinence or any other paresthesias. She denies injuries elsewhere did not hit her head or neck etc. She is not on any anticoagulation. She states that she gets lightheaded from time to time and not sure what happened today but she felt like she was about to pass out or may have lost consciousness she is not sure. No history of any cardiac abnormalities including any electrical conduction problems in the past. Her lightheadedness is resolved. No other symptoms preceding today's event. Pain is severe. Related Data Home Medications Medication Instructions Recorded Confirmed montelukast 10 mg tablet 10 mg PO DAILY Allergy symptoms 08/08/17 10/03/22
[2022-10-18 09:51] LABS: Basophils # 0.1 K/mm3 (0-0.2); Basophils % 0.6 % (0.1-2.0); Eosinophils # 0.3 K/mm3 (0.0-0.4); Eosinophils % 2.9 % (0.1-12.0); Hematocrit 44.5 % (37.0-47.0); Hemoglobin 14.1 g/dL (12.2-16.2); Lymphocytes # 2.7 K/mm3 (0.7-4.5); Mean Corpuscular HGB Conc 31.7 g/dL (31.8-35.4); Mean Corpuscular Hemoglobin 29.1 pg (27.0-31.2); Mean Platelet Volume 8.2 fl (7.4-10.4); Monocytes # 0.6 K/mm3 (0.1-1.0); Neutrophils # 6.8 K/mm3 (1.8-7.8); Neutrophils % 64.5 % (37.0-80.0); Platelet Count 247 K/mm3 (142-424); Red Blood Count 4.83 M/mm3 (4.20-5.40); Red Cell Distribution Width 13.4 % (11.5-17.5); White Blood Count 10.5 K/mm3 (4.8-10.8)
--- NOTE | 2022-10-18 10:03 | PC.NURSE ---
Pillow provided to patient nothing else needed at this time; call light within reach
--- NOTE | 2022-10-18 10:08 | ECG_ITS ---
APPROVED REPORT Exam: Resting ECG HR:62 bpm ECG Measurements Heart Rate 62 AXES LA 187 P 58 QRSd 80 QRS 66 QT 402 T 79 QTc 406 Conclusion SINUS RHYTHM WITH MARKED SINUS ARRHYTHMIA BORDERLINE ECG UNCONFIRMED REPORT Electronically signed by : Marty Silva MD 10/18/2022 17:40:37
--- NOTE | 2022-10-18 10:33 | PC.NURSE ---
Rounded on patient; patient rating pain a 8/10 sharp pain. MD notified new orders received.
[2022-10-18 10:43] LABS: Chloride 109 mmol/L (98-107); Potassium 4.4 mmoL/L (3.5-5.1); Sodium 141 mmol/L (136-145)
[2022-10-18 10:46] LABS: Alanine Aminotransferase 21 U/L (12-78); Albumin Level 3.7 g/dl (3.5-5.0); Albumin/Globulin Ratio 1.5 (1.1-1.8); Alkaline Phosphatase 96 U/L (38-126); Anion Gap 8.4 mEq/L (5-15); Aspartate Amino Transferase 24 U/L (14-36); Bilirubin,Total 0.4 mg/dl (0.2-1.3); Blood Urea Nitrogen 16 mg/dl (7-17); Carbon Dioxide 28 mmol/L (22.0-30.0); Creatinine Clearance Estimated 53 mL/min (50-200); Estimated Glomerular Filt Rate 69 ml/min (>60); GFR (African American) 84 ML/MIN (>60); Globulin 2.4 g/dL (1.3-3.2); Total Protein,Serum 6.1 g/dl (6.3-8.2)
[2022-10-18 10:47] LABS: Calcium 9.1 mg/dl (8.4-10.2); Glucose 120 mg/dl (74-100); Magnesium 2.2 mg/dl (1.6-2.3)
[2022-10-18 11:04] LABS: Troponin I < 0.01 ng/ml (0.00-0.034)
[2022-10-18 11:17] LABS: Thyroid Stimulating Hormone 2.47 uIU/mL (0.465-4.68)
== END 2022-10-18 11:35 | disposition home or self-care (01) ==
LOC: ER 09:36
PROVIDERS: Emergency Provider Student in an Organized Health Care Education/Training Program; PCP Family Medicine
DX: R55 Syncope and collapse (principal); S39.92XA Unspecified injury of lower back, initial encounter; I10 Essential (primary) hypertension; E11.9 Type 2 diabetes mellitus without complications; E78.5 Hyperlipidemia, unspecified; G47.33 Obstructive sleep apnea (adult) (pediatric); W19.XXXA Unspecified fall, initial encounter
CPT/HCPCS: 72131; 80053; 83735; 84443; 84484; 85025; 93005; 96374; 96375; 99285; J2405

== ENCOUNTER 2023-03-31 12:42 | Outpatient (CLI) | payer MEDICARE, MEDICAID, SELFPAY ==
--- NOTE | 2023-03-31 12:42 | US_ITS ---
FINAL REPORT TECHNIQUE: Ultrasound images of the kidneys and bladder were obtained. CLINICAL HISTORY: Kidney failure COMPARISON: None FINDINGS: The right kidney measures 13 cm in length. It is normal in echogenicity. There is moderate hydronephrosis. There is severe left renal atrophy measuring 4 cm in length. Cortical thinning is noted. There is no hydronephrosis. Spleen is normal in size. IMPRESSION: Severe left renal atrophy with cortical thinning. Moderate right hydronephrosis. Reviewed, Interpreted and Dictated by Darron Hernández III, MD Transcribed by Rebecca Vicente Authenticated and [facility]
== END 2023-03-31 23:59 ==
LOC: RAD 12:42
PROVIDERS: PCP Family Medicine; Visit Provider Urology
DX: N17.9 Acute kidney failure, unspecified (principal)
CPT/HCPCS: 76770

== ENCOUNTER 2023-06-05 12:24 | Day surgery (SDC) | payer MEDICARE, MEDICAID, SELFPAY ==
[2023-06-05 12:41] VITALS: BP 128/78; PULSE 67; RESP 18; TEMP 36.2; O2SAT 95; BMI 30.2
[2023-06-05] MEDS: LACTATED RINGERS 1000ML 1,000 ML 25 ML IV (12:48)
--- NOTE | 2023-06-05 13:27 | EXP.ANES.CKL ---
[facility] Disclaimer: The information contained in this section may have been updated after the patient was seen, as this information can be updated by other users. Medical History History of transient ischemic attack (TIA) Asthma Insomnia History of kidney problems NAIF on CPAP Hyperlipidemia Diabetes mellitus Surgical History History of kidney surgery History of shoulder surgery History of colonoscopy H/O: hysterectomy History of knee replacement, total Family History Other Cancer Coronary artery disease Diabetes Social History Smoking Status: Never smoker alcohol intake: never substance use type: denies use current occupational status: retired Travel in the last 8 weeks: None household members: none housing: apartment [facility] Anesthesia Checklist Patient Identification Patient Identification: Arm Band and Verbal (Name & ) Structural Data Admitted From: Home Planned Operative Procedure/s: EGD Consent for Planned Operative Procedure(s) Verified: Yes NPO Status Verified Time NPO: 00:00 Airway Assessment Mallampati Score:: Class IV C-Spine Mobility Assessed: Yes TMJ Mobility Assessed: Yes Dentition: Edentulous Neurological Assessment Level of Consciousness: Awake Hx Seizures: No Numbness or tingling in extremities: No Anesthesia Plan Anesthesia Risk discussed: Yes Anesthesia Plan: Verified ASA Class: III Anesthesia Type: MAC
[2023-06-05 13:38] VITALS: O2SAT 95
--- NOTE | 2023-06-05 13:48 | HMH.SCOPE ---
Procedure: Date: 06/05/23 Patient Date of :: 1945 Procedure Performed:: EGD & biopsies with dilation Indications:: Dysphagia, abnormal xrays Performing Provider:: Aneudy Orourke MD Referring Provider:: Shae Orourke APRN Sedation:: Propofol Procedure:: The gastroscope was gently passed through the incisoral orifice into the oral cavity and under direct visualization the esophagus was intubated. The endoscope was passed down the esophagus, through the stomach, and into the duodenum. Color, texture, mucosa, and anatomy of the esophagus, stomach, and duodenum were carefully examined with the scope. Findings:: Oropharynx: normal Esophagus: normal with distal spasm, no mucosal abnormalities, dilated with with 56F bougie dilator EG Junction: intact at 40 cm Cardia: normal Fundus: normal Body: normal, gastric sleeve anatomy Antrum: Three distinct ulcers noted, biopsied Duodenal bulb: normal Duodenum (second and third portion): normal Impression: Antral ulcers Symptomatic dysphagia treated with bougie dilation Specimens:: Gastric Recommendations:: Avoid NSAIDs & ASA products Repeat dilation in about 2-3 years as clinically indicated Complications:: None Estimated blood obtained (mL): 0 Colonoscopy Component Colonoscopy Component Was a colonoscopy performed during today's procedure?: No
[2023-06-05 13:49] VITALS: BP 127/71; PULSE 80; RESP 16; TEMP 36.5; O2SAT 90
[2023-06-05 13:59] VITALS: BP 112/51; PULSE 72; RESP 16; O2SAT 95
[2023-06-05 14:09] VITALS: BP 122/61; PULSE 75; RESP 16; O2SAT 95
[2023-06-05 14:19] VITALS: BP 130/67; PULSE 77; RESP 16; O2SAT 96
[2023-06-06 07:35] LABS: POC Glucose,Bedside 109 (70-110)
== END 2023-06-05 14:30 | disposition home or self-care (01) ==
PROVIDERS: PCP Family Medicine; Visit Provider Internal Medicine Gastroenterology
PROC: 0DJ08ZZ Inspection of Upper Intestinal Tract, Via Natural or Artificial Opening Endoscopic (ICD-10-PCS; CPT 43235; principal; 2023-06-05 13:30)
DX: K25.9 Gastric ulcer, unspecified as acute or chronic, without hemorrhage or perforation (principal); Z98.84 Bariatric surgery status; R13.10 Dysphagia, unspecified; K29.50 Unspecified chronic gastritis without bleeding; E11.9 Type 2 diabetes mellitus without complications
CPT/HCPCS: 43239; 43248; 82962; 88305; 88342

== ENCOUNTER 2023-09-11 11:00 | Outpatient (RCR) | payer MEDICARE, MEDICAID, SELFPAY | END 2023-09-11 12:10 | disposition home or self-care (01) | LOC: OT 11:00 | PROVIDERS: Visit Provider Family Medicine | DX: M19.041 Primary osteoarthritis, right hand (principal) | CPT/HCPCS: 97165 ==

== ENCOUNTER 2024-01-20 15:46 | Emergency (ER) | payer MEDICARE, MEDICAID, SELFPAY ==
[2024-01-20 15:48] VITALS: BP 138/83; PULSE 91; RESP 18; TEMP 36.6; O2SAT 96; BMI 31.7
[2024-01-20 16:02] VITALS: PULSE 73; O2SAT 97
[2024-01-20 16:18] LABS: Basophils # 0.1 K/mm3 (0-0.2); Basophils % 1.2 % (0.1-2.0); Eosinophils # 0.2 K/mm3 (0.0-0.4); Hematocrit 45.3 % (37.0-47.0); Hemoglobin 14.9 g/dL (12.2-16.2); Lymphocytes # 2.1 K/mm3 (0.7-4.5); Mean Corpuscular Volume 94.1 fl (81-99); Mean Platelet Volume 7.3 fl (7.4-10.4); Monocytes # 0.3 K/mm3 (0.1-1.0); Monocytes % 4.9 % (1.7-9.3); Neutrophils # 3.6 K/mm3 (1.8-7.8); Neutrophils % 56.9 % (37.0-80.0); Platelet Count 256 K/mm3 (142-424); Red Blood Count 4.81 M/mm3 (4.20-5.40); Red Cell Distribution Width 13.5 % (11.5-17.5); White Blood Count 6.3 K/mm3 (4.8-10.8)
[2024-01-20 16:24] LABS: Alanine Aminotransferase 29 U/L (12-78); Albumin Level 4.2 g/dl (3.5-5.0); Albumin/Globulin Ratio 1.4 (1.1-1.8); Alkaline Phosphatase 154 U/L (38-126); Aspartate Amino Transferase 36 U/L (14-36); Bilirubin,Total 0.6 mg/dl (0.2-1.3); Blood Urea Nitrogen 34 mg/dl (7-17); Calcium 9.4 mg/dl (8.4-10.2); Carbon Dioxide 21 mmol/L (22.0-30.0); Chloride 106 mmol/L (98-107); Creatinine Clearance Estimated 26 mL/min (50-200); Estimated Glomerular Filt Rate 24 ml/min (>60); GFR (African American) 29 ML/MIN (>60); Glucose 138 mg/dl (74-100); Sodium 140 mmol/L (136-145); Total Protein,Serum 7.2 g/dl (6.3-8.2)
--- NOTE | 2024-01-20 16:27 | PC.NURSE ---
bladder scan 39ml
--- NOTE | 2024-01-20 16:35 | CT_ITS ---
PROCEDURE INFORMATION: Exam: CT Abdomen And Pelvis Without Contrast Exam date and time: 01/20/2024 5:07 PM Age: 78 years old Clinical indication: Other: Oliguria; Additional info: New intra- vs post-renal ricyk, oliguria, flank pain TECHNIQUE: Imaging protocol: Computed tomography of the abdomen and pelvis without contrast. Radiation optimization: All CT scans at this facility use at least one of these dose optimization techniques: automated exposure control; mA and/or kV adjustment per patient size (includes targeted exams where dose is matched to clinical indication); or iterative reconstruction. COMPARISON: CR XR PELVIS 1-2V 05/11/2020 2:33 AM FINDINGS: Lungs: A 5 mm right middle lobe nodule noted on image 5 of series 3. No other noncalcified nodules. A 1 cm calcified nodule medial right lower lobe on image 17. Lung bases otherwise clear. Liver: Normal. No mass. Gallbladder and biliary ducts: Normal. No calcified stones. No ductal dilation. Pancreas: Normal. No ductal dilation. Spleen: Normal. No splenomegaly. Adrenal glands: Normal. No mass. Kidneys and ureters: Left kidney nonvisualized. Rytk-nf-xqjpiset scarring of the superior right kidney. Moderate right hydronephrosis to the UPJ level. No obstructing stone or other obvious obstructing lesion identified at the UPJ. Course and caliber of the right ureter are otherwise normal. Stomach and bowel: Gastric sleeve procedure. GI tract structures otherwise unremarkable with no evident wall thickening allowing for incomplete distention. Appendix: Appendix is normal. No evidence of appendicitis. Intraperitoneal space: Unremarkable. No free air. No significant fluid collection. Vasculature: Atherosclerotic changes of the aorta and iliacs noted. No evidence of aneurysm. Lymph nodes: Unremarkable. No enlarged lymph nodes. Urinary bladder: Unremarkable as visualized. Reproductive: Hysterectomy. Bones/joints: Unremarkable. No acute fracture. Soft tissues: Unremarkable. IMPRESSION: 1. Moderate right-sided hydronephrosis to the UPJ level of indeterminate etiology. This finding felt to be of greater significance given the absence of the left kidney. Urology consultation advised. 2. Additional nonemergent findings as above. 3. A 5 mm right middle lobe nodule. For patients at low risk (minimal or absent history of smoking and of other known risk factors), no routine follow-up is indicated. For patients at high risk (history of smoking or of other known risk factors), consider optional CT Chest at 12 months. (Reference: Jono) REFERENCES: Jono Valente, et al. Guidelines for Management of Incidental Pulmonary Nodules Detected on CT Images: From the Fleischner Society 2017. Radiology. 2017;284(1):228-243.
--- NOTE | 2024-01-20 16:37 | HMH.EDGENADL ---
Discharge Plan Disposition Patient Disposition: Home, Self-Care Chief Complaint: Urogenital-Female Prescriptions Prescriptions: No Action hydroxyzine HCl 25 mg tablet 25 mg PO BID Patient Comments: TAKE 1/2 TO 1 TABLET BY MOUTH THREE TIMES DAILY NEEDED FOR ITCHING rosuvastatin 20 mg tablet 20 mg PO DAILY Patient Comments: TAKE 1 TABLET BY MOUTH DAILY (DME) FreeStyle Mathew 14 Day Sensor Kit See Rx Instructions .ROUTE .MEDSUPPLY Qty: 1 Rx Instructions: As directed duloxetine 30 mg capsule,delayed release(DR/EC) 30 mg PO DAILY alendronate 70 mg tablet 70 mg PO WEEKLY Myrbetriq 50 mg tablet extended release 24 hr 50 mg PO DAILY Qty: 90 3RF oxybutynin chloride 10 mg tablet extended release 24hr 10 mg PO DAILY Qty: 90 3RF aspirin [Adult Low Dose Aspirin] 81 mg tablet,delayed release (DR/EC) 81 mg PO DAILY sitagliptin phosphate 100 mg tablet 100 mg PO DAILY Patient Comments: TK 1 T PO D tramadol 50 mg tablet 50 mg PO BID PRN (Reason: pain) cyclobenzaprine 5 mg tablet 5 mg PO BID PRN (Reason: Muscle Pain) Patient Comments: TAKE 1 TABLET BY MOUTH THREE TIMES DAILY NEEDED FOR MUSCLE SPASMS meclizine 25 mg tablet 25 mg PO NEEDED PRN (Reason: Dizziness) Jardiance 25 mg tablet 25 mg PO DAILY Patient Comments: TAKE 1 TABLET BY MOUTH DAILY trazodone 50 mg tablet 50 mg PO HS Patient Comments: TAKE 1 TO 2 TABLETS BY MOUTH EVERY NIGHT pantoprazole [Protonix] 40 mg tablet,delayed release (DR/EC) 40 mg PO DAILY Qty: 30 5RF eszopiclone [Lunesta] 2 mg tablet 2 mg PO HS Qty: 30 0RF montelukast 10 MG tablet 10 mg PO DAILY duloxetine 60 mg capsule,delayed release(DR/EC) 90 mg PO DAILY Referrals Follow up/Referrals: Adrianna Landaverde MD [Primary Care Provider] - See instructions Activity Restrictions/Add. Instructions Additional Instructions/Restrictions: Follow-up with your family doctor regarding this visit to the emergency department. Your potassium today was elevated at 5.7, follow-up for lab redraw. Creatinine improved to 0.9, BUN 21 (2.0 and 34 prior to fluids). Call to schedule follow-up with your urologist as well. Today, CT scan without any acute abnormalities. Call your family doctor to establish care for this visit to the emergency department and schedule follow-up within 48 hours to ensure improvement. If you have any worsening of your condition or any other concerning signs or symptoms, return to the emergency department or your primary care doctor for further evaluation. Clinical Impressions Clinical Impression: Oliguria, VANDANA (acute kidney injury) Instructions Patient Instructions: DI for Urinary Tract Infection (UTI), DI for Urinary Tract Infection in Children Print Language Print Language: Japanese Discharge ED Provider: Segundo Cedeño General Adult HPI General Chief complaint: Urogenital-Female Stated complaint: sent by urologist -cannot urinate Time Seen by Provider: 01/20/24 15:58 Mode of Arrival: Ambulatory Source of Information: Patient Limitations: No Limitations Description of Symptoms (Recalled from ER Triage Doc. by RN): kidney issues,urinary problems History of Present Illness HPI narrative: Please note that above description of symptoms, in this electronic medical record under categorization of recalled from ER triage doctor by RN are reflective of an initial nursing assessment, however, is not reflective of my full history and physical exam that was personally taken and clarified. Consequentially, this preceding description of symptoms, which may include the patient's categorized chief complaint in the EMR, do not reflect my personal clinical impression, and the ultimate description of history of present illness and patient stated complaints should be deferred to this section of the note. Unless stated otherwise or congruent with this section of the note, additional signs, symptoms, or incongruence should be interpreted as inaccurate with my clinical impression. Related Data Home Medications ?Medication ?Instructions ?Recorded ?Confirmed montelukast 10 mg tablet 10 mg PO DAILY Allergy symptoms 08/08/17 08/21/23 aspirin 81 mg tablet,delayed 81 mg PO DAILY Blood thinner 01/26/20 08/21/23 release (Adult Low Dose Aspirin) sitagliptin phosphate 100 mg tablet 100 mg PO DAILY Diabetes 01/26/20 08/21/23 tramadol 50 mg tablet 50 mg PO BID PRN pain 01/26/20 08/21/23 cyclobenzaprine 5 mg tablet 5 mg PO BID PRN Muscle Pain 03/29/20 08/21/23 meclizine 25 mg tablet 25 mg PO NEEDED PRN Dizziness 08/23/20 08/21/23 hydroxyzine HCl 25 mg tablet 25 mg PO BID 10/31/21 08/21/23 rosuvastatin 20 mg tablet 20 mg PO DAILY 10/31/21 08/21/23 duloxetine 60 mg capsule,delayed 90 mg PO DAILY Depression 07/30/22 08/21/23 release alendronate 70 mg tablet 70 mg PO WEEKLY 10/03/22 08/21/23 duloxetine 30 mg capsule,delayed 30 mg PO DAILY 10/03/22 08/21/23 release flash glucose sensor (FreeStyle #1 ea 10/03/22 08/21/23 Mathew 14 Day Sensor kit) empagliflozin 25 mg tablet 25 mg PO DAILY 03/27/23 08/21/23 (Jardiance) trazodone 50 mg tablet 50 mg PO HS 03/27/23 08/21/23 Previous Rx's ?Medication ?Instructions ?Recorded mirabegron 50 mg tablet,extended 50 mg PO DAILY #90 tabs 02/24/23 release 24 hr (Myrbetriq) eszopiclone 2 mg tablet (Lunesta) 2 mg PO HS insomnia #30 tabs 03/04/23 oxybutynin chloride 10 mg 10 mg PO DAILY #90 tabs 04/07/23 tablet,extended release 24 hr pantoprazole 40 mg tablet,delayed 40 mg PO DAILY #30 tabs 08/21/23 release (Protonix) Allergies Allergy/AdvReac Type Severity Reaction Status Date / Time No Known Allergies Allergy Verified 08/21/23 09:11 [facility] Disclaimer: The information contained in this section may have been updated after the patient was seen, as this information can be updated by other users. Medical History History of transient ischemic attack (TIA) Asthma Insomnia Doing better on Lunesta 2 mg p.o. good chest pain History of kidney problems NAIF on CPAP Hyperlipidemia Diabetes mellitus Surgical History History of kidney surgery History of shoulder surgery History of colonoscopy H/O: hysterectomy History of knee replacement, total Family History Other Cancer Coronary artery disease Diabetes Social History Smoking Status: Never smoker alcohol intake: never substance use type: denies use current occupational status: retired Travel in the last 8 weeks: None household members: none housing: apartment Other Medical History Have you received the Flu Vaccine for this season: Yes Have you received the Pneumonia Vaccine: Yes ROS Obtained: Yes All systems reviewed & no additional complaints except as documented Physical Exam General General appearance: alert Head Head exam: atraumatic and normocephalic Eye Eye exam: Present normal appearance, PERRL and EOMI Neck Neck exam: Present normal inspection, full ROM and trachea midline Respiratory Respiratory exam: Absent respiratory distress, wheezes, stridor, accessory muscle use or prolonged expiratory phase Cardiovascular Cardiovascular exam: Present other (Pulses equal symmetric in upper and lower extremities) Abdominal Exam Abdominal exam: Present soft; Absent distention, tenderness or pulsatile mass Extremities Exam Extremities exam: Absent edema Neurological Exam Neurological exam: Present alert, oriented X3 and CN II-XII intact; Absent motor sensory deficit Skin Skin exam: Present warm and dry; Absent diaphoresis or erythema Medical Decision Making Medical Records Medical records reviewed: Yes I reviewed the patient's medical records. Screening: Per USPSTF and CDC recommendations, given the prevalence of disease in our region, it is our hospital?s policy to screen for HIV and viral Hepatitis for all patients aged 18 and over and those with ongoing risk factors. Diego Inquiry Pt receiving controlled substance: No Diego was queried for this patient: No Vital Signs: 01/20/24 15:48 01/20/24 16:02 Temperature 97.9 F Temperature Source Oral Pulse Rate 73 Pulse Rate [Right] 91 H Respiratory Rate 18 Blood Pressure [Right Arm] 138/83 Blood Pressure Mean [Right Arm] 101 02 Sat by Pulse Oximetry 96 97 Lab Data Lab Results 01/20/24 16:09: WBC 6.3, RBC 4.81, Hgb 14.9, Hct 45.3, MCV 94.1, MCH 31.0, MCHC 33.0, RDW 13.5, Plt Count 256, MPV 7.3 L, Neut % (Auto) 56.9, Lymph % (Auto) 34.0, [place] % (Auto) 4.9, Eos % (Auto) 3.0, Baso % (Auto) 1.2, Neut # (Auto) 3.6, Lymph # (Auto) 2.1, [place] # (Auto) 0.3, Eos # (Auto) 0.2, Baso # (Auto) 0.1, Sodium 140, Potassium 4.0, Chloride 106, Carbon Dioxide 21 L, Anion Gap 17.0 H, BUN 34 H, Creatinine 2.00 H, Estimated Creat Clear 26, Estimated GFR 24 L, Est GFR ( Amer) 29 L, Glucose 138 H, Calcium 9.4, Total Bilirubin 0.6, AST 36, ALT 29, Alkaline Phosphatase 154 H, Total Protein 7.2, Albumin 4.2, Globulin 3.0, Albumin/Globulin Ratio 1.4, HIV 1&2 Antibody Rapid Nonreactive 01/20/24 17:03: Urine Color Yellow, Urine Appearance Clear, Urine pH 6.0, Ur Specific [place] 1.010, Urine Protein Negative, Urine Glucose (UA) 3+, Urine Ketones Negative, Urine Blood Negative, Urine Nitrate Negative, Urine Bilirubin Negative, Urine Urobilinogen 0.2, Ur Leukocyte Esterase Negative, Urine RBC Occasional, Urine WBC Occasional, Ur Squamous Epith Cells Occasional 01/20/24 19:27: Sodium 139, Potassium 5.7 H D, Chloride 110 H, Carbon Dioxide 20 L, Anion Gap 14.7, BUN 21 H D, Creatinine 0.90 D, Estimated Creat Clear 51, Estimated GFR 60, Est GFR ( Amer) 73 D, Glucose 142 H, Calcium 9.2 01/20/24 16:09 01/20/24 19:27 Orders (Tests/Meds): ED MEDICATIONS Generic Name Dose Route Start Last Admin Trade Name Freq PRN Reason Stop Dose Admin Sodium Zirconium Cyclosilicate 10 gm 01/20/24 20:50 Lokelma 5gm Packet PO 01/20/24 20:51 ONCE ONE Discontinued Medications Generic Name Dose Route Start Last Admin Trade Name Freq PRN Reason Stop Dose Admin Sodium Chloride 1,000 mls @ 999 mls/hr 01/20/24 16:35 01/20/24 16:44 Sod Chlor 0.9% 1000ml Bag IV 01/20/24 17:35 999 mls/hr .Q1H1M ONE Administration ORDERS Category Date Time Status CT abdomen pelvis wo con Stat Cat Scan 01/20/24 16:35 Completed BMP [Basic Metabolic Panel] Stat Lab 01/20/24 19:27 Completed CBC w/Auto Diff [Complete Blood Count Auto Diff] Stat Lab 01/20/24 16:09 Completed CMP [Comprehensive Metabolic Panel] Stat Lab 01/20/24 16:09 Completed HIV (1&2) Antibody Rapid Stat Lab 01/20/24 16:09 Completed Hep C Ab with Reflex to RNA Stat Lab 01/20/24 16:09 Received UA [Urinalysis and Microscopic] Stat Lab 01/20/24 17:03 Completed Medical Decision Narrative: 78-year-old female history of unilateral kidney failure (patient does not know which kidney has failed) due to complication during , diabetes, anxiety presenting with oliguria. Patient states that she has been drinking a little less than she usually does yesterday into today. She had a glass of milk and a quarter of a bottle of water today. Has only urinated a small amount once today. Called her urologist, urologist recommended that she come to the emergency department for further evaluation despite having no urologic capabilities here at [facility]. Patient states that she has no other symptoms other than intermittent lower back pains, unknown if these are related, but feel chronic. No nausea, vomiting, fevers, chills, dysuria, hematuria, shortness of breath, diarrhea, constipation, any other concerning symptoms. She states that she just feels generally uncomfortable, without specific complaint. History was obtained via conversation with patient, family, outside hospital chart review. On arrival, patient hemodynamically stable, alert, oriented x4, appropriate, GCS 15, moving all extremities spontaneously, pupils equal and reactive to light. Full physical exam performed and significant for chronically appearing female, no acute distress. Normotensive, nontachycardic nontender, nondistended. No flank tenderness or pain. Differential includes prerenal VANDANA, postrenal VANDANA, intrarenal VANDANA, dehydration, obstructive uropathy, nephrolithiasis, UTI, acute renal failure, among others. Patient placed on continuous cardiac monitoring and continuous pulse ox with initial blood pressure 138/83, heart rate 91, saturation 96% on room air. Patient was given 1 L fluid bolus for symptomatic management and correction of underlying abnormalities. Bladder scan with less than 50 mL. Workup independently interpreted and significant for normal CBC. Chemistry with VANDANA creatinine 2, BUN 34, concerning for intrarenal versus postrenal VANDANA. On independent interpretation of imaging, no acute intra-abdominal abnormality. Patient has stable right sided hydronephrosis compared to past imaging and outside hospital imaging. See radiology read for full review of final results. Patient was placed in observation beginning at 5 PM in order to give meds, reevaluate labs and determine need for admission versus home-going. The patient was provided IV fluids while awaiting results. Independent interpretation of results demonstrated improved BUN and creatinine at 21, 0.9 respectively. Patient's potassium elevated at 5.7 for what ever reason. Repeat was similar. I feel this is likely lab error given patient only received 1 on potassium containing fluids. Patient given Lokelma 10 g orally. On reevaluation, resting comfortably and ready to go. At this time, I feel patient is appropriate for discharge and outpatient follow-up. Total observation time 4 hours. Because patient at baseline without signs or symptoms of clinical decompensation, deemed appropriate for discharge. Results were relayed to patient who voiced understanding and were agreeable to outpatient management and follow up. I discussed my clinical impression with patient and answered all questions. At this time, the evidence for any other entities in the differential is insufficient to warrant any further testing or ED observation. This was explained as well. Advisory was given that persistent or worsening symptoms require further evaluation. I confirmed the understanding of this discussion. [employer] disclaimer Much of this encounter note is an electronic international representative spoken language to printed text. Electronic international representative of the spoken language may permit errors. Although I have reviewed the note, some errors may still exist. Critical Care Critical Care Time Critical Care Time: No
[2024-01-20] MEDS: 0.9 % SODIUM CHLORIDE 1000ML 1,000 ML 999 ML IV (16:44)
[2024-01-20 17:07] LABS: Microscopic, Urine URINE MICROSCOPIC (MICROSCOPIC)
[2024-01-20 17:11] LABS: Appearance,Urine CLEAR (Clear); Bilirubin,Urine Negative (Negative); Blood, Urine Negative (Negative); Color,Urine YELLOW (Yellow); Glucose,Urine (UA) 3+ (Negative); Ketones,Urine Negative (Negative); Leukocyte Esterase,Urine Negative (Negative); Nitrate,Urine Negative (Negative); Protein,Urine Negative (Negative); Urobilinogen,Urine 0.2 EU/dl (0.2)
[2024-01-20 17:37] LABS: HIV (1&2) Antibody Rapid NONREACTIVE (NONREACTIVE)
[2024-01-20 17:52] LABS: RBC,Urine Occasional #/hpf (0-3); WBC,Urine Occasional #/hpf (0-3)
[2024-01-20 17:53] LABS: Squamous Epithelial Cell,Urine Occasional #/hpf (0-5)
[2024-01-20 20:03] LABS: Anion Gap 14.7 mEq/L (5-15); Blood Urea Nitrogen 21 mg/dl (7-17); Calcium 9.2 mg/dl (8.4-10.2); Carbon Dioxide 20 mmol/L (22.0-30.0); Chloride 110 mmol/L (98-107); Creatinine Clearance Estimated 51 mL/min (50-200); Estimated Glomerular Filt Rate 60 ml/min (>60); GFR (African American) 73 ML/MIN (>60); Glucose 142 mg/dl (74-100); Potassium 5.7 mmoL/L (3.5-5.1); Sodium 139 mmol/L (136-145)
--- NOTE | 2024-01-20 20:25 | PC.NURSE ---
Assisted patient to the restroom, family assisted as well.
--- NOTE | 2024-01-20 20:50 | PC.NURSE ---
Lab called to notify that the repeat K is the same as before, this was relayed to Dr. Cedeño.
[2024-01-20] MEDS: LOKELMA 5GM PACKET 10 GM PO (20:52)
[2024-01-20 21:05] VITALS: BP 167/96; PULSE 77; RESP 18; TEMP 36.5; O2SAT 97
[2024-01-21 11:15] LABS: HCV Ab Non Reactive (Non Reactive)
== END 2024-01-20 21:06 | disposition home or self-care (01) ==
PROVIDERS: Emergency Provider Emergency Medicine; PCP Family Medicine
DX: N17.9 Acute kidney failure, unspecified (principal); R34 Anuria and oliguria; R33.9 Retention of urine, unspecified
CPT/HCPCS: 74176; 80048; 80053; 81001; 85025; 86803; 87389; 96360; 99284; J7030

== ENCOUNTER 2024-08-10 20:06 | Emergency (ER) | payer MEDICARE, MEDICAID, SELFPAY ==
[2024-08-10 21:33] VITALS: BP 126/79; PULSE 78; RESP 16; TEMP 37.1; O2SAT 98; BMI 31.3
--- NOTE | 2024-08-10 21:42 | XR_ITS ---
PROCEDURE INFORMATION: Exam: XR Left Wrist Exam date and time: 08/10/2024 9:46 PM Age: 79 years old Clinical indication: Injury or trauma; Fall; Other: Pain; Additional info: C/O pain TECHNIQUE: Imaging protocol: Radiologic exam of the left wrist. Views: 3 or more views. COMPARISON: CR XR HAND LT MIN 3V 08/10/2024 9:44 PM FINDINGS: Bones/joints: No acute fracture or malalignment. Osteoarthritis. Soft tissues: Unremarkable. IMPRESSION: No acute osseous findings.
--- NOTE | 2024-08-10 21:44 | XR_ITS ---
PROCEDURE INFORMATION: Exam: XR Left Hand Exam date and time: 08/10/2024 9:44 PM Age: 79 years old Clinical indication: Injury or trauma; Fall; Other: Pain; Additional info: C/O pain TECHNIQUE: Imaging protocol: Radiologic exam of the left hand. Views: 3 or more views. COMPARISON: No relevant prior studies available. FINDINGS: Bones/joints: No acute fracture or malalignment. Osteoarthritis. Soft tissues: Unremarkable. IMPRESSION: No acute osseous findings.
[2024-08-10] MEDS: ACETAMINOPHEN 500MG TAB 1000 MG PO (21:46)
--- NOTE | 2024-08-10 22:22 | CT_ITS ---
PROCEDURE INFORMATION: Exam: CT Cervical Spine Without Contrast Exam date and time: 08/10/2024 11:08 PM Age: 79 years old Clinical indication: Injury or trauma; Fall; Other: Pain; Additional info: Fall >65 pain TECHNIQUE: Imaging protocol: Computed tomography of the cervical spine without contrast. Radiation optimization: All CT scans at this facility use at least one of these dose optimization techniques: automated exposure control; mA and/or kV adjustment per patient size (includes targeted exams where dose is matched to clinical indication); or iterative reconstruction. COMPARISON: CT CERVICAL SPINE WO CON 05/11/2020 2:27 AM FINDINGS: Bones: Cervical vertebrae normal in height. No acute fracture. Dextroconvex curvature. Minimal anterolisthesis C3 on C4. Maintained craniocervical junction. Multilevel degenerative changes. Varying degrees of neural foraminal narrowing. No severe spinal canal stenosis. Lungs: Lung apices are normal. Vasculature: Bilateral carotid artery calcifications. Soft tissues: Unremarkable. IMPRESSION: No acute osseous findings.
--- NOTE | 2024-08-10 22:22 | CT_ITS ---
PROCEDURE INFORMATION: Exam: CT Head Without Contrast Exam date and time: 08/10/2024 11:07 PM Age: 79 years old Clinical indication: Injury or trauma; Fall; Other: Pain; Additional info: Fall >65 pain TECHNIQUE: Imaging protocol: Computed tomography of the head without contrast. Radiation optimization: All CT scans at this facility use at least one of these dose optimization techniques: automated exposure control; mA and/or kV adjustment per patient size (includes targeted exams where dose is matched to clinical indication); or iterative reconstruction. COMPARISON: CT HEAD/BRAIN WO CON 08/17/2021 3:19 PM FINDINGS: Brain: No acute intracranial hemorrhage, midline shift, or mass effect. Diffuse brain parenchymal volume loss. Cerebral ventricles: No ventriculomegaly. Paranasal sinuses: Visualized sinuses are unremarkable. No fluid levels. Mastoid air cells: Visualized mastoid air cells are well aerated. Bones: Unremarkable. No acute fracture. Soft tissues: Unremarkable. IMPRESSION: No acute intracranial findings.
--- NOTE | 2024-08-10 22:45 | HMH.EDGENADL ---
Discharge Plan Disposition Patient Disposition: Home, Self-Care Condition: Good Prescriptions Prescriptions: No Action hydroxyzine HCl 25 mg tablet 25 mg PO BID Patient Comments: TAKE 1/2 TO 1 TABLET BY MOUTH THREE TIMES DAILY NEEDED FOR ITCHING rosuvastatin 20 mg tablet 20 mg PO DAILY Patient Comments: TAKE 1 TABLET BY MOUTH DAILY (DME) FreeStyle Mathew 14 Day Sensor Kit See Rx Instructions .ROUTE .MEDSUPPLY Qty: 1 Rx Instructions: As directed duloxetine 30 mg capsule,delayed release(DR/EC) 30 mg PO DAILY alendronate 70 mg tablet 70 mg PO WEEKLY Myrbetriq 50 mg tablet extended release 24 hr 50 mg PO DAILY Qty: 90 3RF metformin 500 mg tablet extended release 24 hr 500 mg PO DAILY Patient Comments: TAKE 1 TABLET BY MOUTH DAILY WITH BREAKFAST indomethacin 25 mg capsule 25 mg PO BID Patient Comments: TAKE 1 CAPSULE BY MOUTH TWICE DAILY WITH MEALS (DME) Dexcom G6 Transmitter Device See Rx Instructions .ROUTE .MEDSUPPLY Qty: 1 Patient Comments: USE DIRECTED Rx Instructions: As directed (DME) Dexcom G6 Sensor Device See Rx Instructions .ROUTE .MEDSUPPLY Qty: 1 Patient Comments: PLACE 1 SENSOR ON THE SKIN FOR 10 DAYS Rx Instructions: As directed aspirin [Adult Low Dose Aspirin] 81 mg tablet,delayed release (DR/EC) 81 mg PO DAILY cyclobenzaprine 5 mg tablet 5 mg PO BID PRN (Reason: Muscle Pain) Patient Comments: TAKE 1 TABLET BY MOUTH THREE TIMES DAILY NEEDED FOR MUSCLE SPASMS meclizine 25 mg tablet 25 mg PO NEEDED PRN (Reason: Dizziness) Jardiance 25 mg tablet 25 mg PO DAILY Patient Comments: TAKE 1 TABLET BY MOUTH DAILY trazodone 50 mg tablet 50 mg PO HS Patient Comments: TAKE 1 TO 2 TABLETS BY MOUTH EVERY NIGHT pantoprazole [Protonix] 40 mg tablet,delayed release (DR/EC) 40 mg PO DAILY PRN oxybutynin chloride 10 mg tablet extended release 24hr 10 mg PO DAILY Qty: 90 3RF montelukast 10 MG tablet 10 mg PO DAILY duloxetine 60 mg capsule,delayed release(DR/EC) 90 mg PO DAILY Referrals Follow up/Referrals: Yruiy Wick DO [Staff Physician] - See instructions Adrianna Landaverde MD [Primary Care Provider] - See instructions Activity Restrictions/Add. Instructions Additional Instructions/Restrictions: You were evaluated in the emergency department today. At this time, x-rays are reassuring, however sometimes fractures can be missed on initial x-ray. We have provided you with a brace to wear pending follow-up outpatient with orthopedics or your primary care provider for repeat x-ray. Take Tylenol at home every 4-6 hours as needed for pain. Rest, ice, and elevate your hand to reduce pain and swelling. Return to the emergency department for new or worsening symptoms. Clinical Impressions Clinical Impression: Hand pain, left, Fall Instructions Patient Instructions: DI for Hand Injury Print Language Print Language: Burkinan Discharge ED Provider: Marilyn Duenas General Adult HPI General Chief complaint: PAIN Stated complaint: AO 08/10/24 1800, fell, inj left hand Time Seen by Provider: 08/10/24 21:52 Mode of Arrival: Ambulatory Source of Information: Patient Description of Symptoms (Recalled from ER Triage Doc. by RN): Patient reports tripped while going up steps. C/o pain to left wrist and hand. History of Present Illness HPI narrative: This patient is an 79-year-old female presenting to the emergency department for evaluation with concern for left hand pain after a mechanical fall. Patient reports that she tripped going up stairs, catching herself with her left hand. She developed pain in her left hand and wrist immediately. She states that she bent her glasses a little bit but did not hit her head hard. She did not lose consciousness. No pain elsewhere. She does not take blood thinners or aspirin. Related Data Home Medications ?Medication ?Instructions ?Recorded ?Confirmed montelukast 10 mg tablet 10 mg PO DAILY Allergy symptoms 08/08/17 07/22/24 aspirin 81 mg tablet,delayed 81 mg PO DAILY Blood thinner 01/26/20 07/22/24 release (Adult Low Dose Aspirin) cyclobenzaprine 5 mg tablet 5 mg PO BID PRN Muscle Pain 03/29/20 07/22/24 meclizine 25 mg tablet 25 mg PO NEEDED PRN Dizziness 08/23/20 07/22/24 hydroxyzine HCl 25 mg tablet 25 mg PO BID 10/31/21 07/22/24 rosuvastatin 20 mg tablet 20 mg PO DAILY 10/31/21 07/22/24 duloxetine 60 mg capsule,delayed 90 mg PO DAILY Depression 07/30/22 07/22/24 release alendronate 70 mg tablet 70 mg PO WEEKLY 10/03/22 07/22/24 duloxetine 30 mg capsule,delayed 30 mg PO DAILY 10/03/22 07/22/24 release flash glucose sensor (FreeStyle #1 ea 10/03/22 02/19/24 Mathew 14 Day Sensor kit) empagliflozin 25 mg tablet 25 mg PO DAILY 03/27/23 07/22/24 (Jardiance) trazodone 50 mg tablet 50 mg PO HS 03/27/23 07/22/24 blood-glucose sensor (Dexcom G6 #1 ea 02/19/24 02/19/24 Sensor device) blood-glucose transmitter (Dexcom #1 ea 02/19/24 02/19/24 G6 Transmitter device) indomethacin 25 mg capsule 25 mg PO BID 02/19/24 07/22/24 metformin 500 mg tablet,extended 500 mg PO DAILY 02/19/24 07/22/24 release 24 hr pantoprazole 40 mg tablet,delayed 40 mg PO DAILY PRN 07/22/24 release (Protonix) Previous Rx's ?Medication ?Instructions ?Recorded mirabegron 50 mg tablet,extended 50 mg PO DAILY #90 tabs 02/24/23 release 24 hr (Myrbetriq) oxybutynin chloride 10 mg 10 mg PO DAILY #90 tabs 05/11/24 tablet,extended release 24 hr Allergies Allergy/AdvReac Type Severity Reaction Status Date / Time No Known Allergies Allergy Verified 07/22/24 09:39 [facility] Disclaimer: The information contained in this section may have been updated after the patient was seen, as this information can be updated by other users. Medical History History of transient ischemic attack (TIA) Asthma Insomnia History of kidney problems NAIF on CPAP Hyperlipidemia Diabetes mellitus Surgical History History of kidney surgery History of shoulder surgery History of colonoscopy H/O: hysterectomy History of knee replacement, total Family History Other Cancer Coronary artery disease Diabetes Social History Smoking Status: Unknown if ever smoked alcohol intake: never substance use type: denies use current occupational status: retired Travel in the last 8 weeks?: None household members: none housing: apartment Have you lived/traveled outside [place] in past 30 days?: No Contact w/someone who lives/traveled outside [place] past 30 days?: No Exposure to someone with infectious disease in past 14 days?: No Do you have a fever (greater than 100.4 F or 38 C)?: No Have you tested positive for COVID-19?: No Exposed to someone with COVID-19 in past 14 days?: No Do you have a sore throat?: No Do you have a cough?: No Do you have any weakness?: No Do you have any diarrhea?: No Are you experiencing any unusual bleeding?: No Do you have any muscle aches/pain?: No Do you have any abdominal pain?: No Are you experiencing loss of taste or smell?: No Other Medical History Have you received the Flu Vaccine for this season: Yes Have you received the Pneumonia Vaccine: Yes ROS Obtained: Yes All systems reviewed & no additional complaints except as documented Physical Exam General General appearance: alert and in no apparent distress Head Head exam: atraumatic and normocephalic Eye Eye exam: Present normal appearance, PERRL and EOMI ENT ENT exam: Present normal exam, normal oropharynx, mucous membranes moist and normal external ear exam Neck Neck exam: Present normal inspection, full ROM and trachea midline; Absent tenderness Chest Chest inspection: Present normal inspection and symmetric chest wall rise; Absent tenderness Respiratory Respiratory exam: Present normal lung sounds bilaterally; Absent respiratory distress, wheezes, stridor or accessory muscle use Cardiovascular Cardiovascular exam: Present regular rate and normal rhythm Abdominal Exam Abdominal exam: Present soft; Absent distention, tenderness or guarding Extremities Exam Extremities exam: Present full ROM, tenderness and normal capillary refill Expanded Upper Extremity Exam Left: Hand L/R back image: 1. Tenderness to palpation with mild soft tissue swelling. Full range of motion distally, neurovascularly intact distally. No open wounds Back Exam Back exam: Present normal inspection and full ROM; Absent tenderness Neurological Exam Neurological exam: Present alert, oriented X3, CN II-XII intact and normal gait; Absent motor sensory deficit Psychiatric Psychiatric exam: Present normal affect and normal mood Skin Skin exam: Present warm and dry Medical Decision Making Medical Records Medical records reviewed: Yes I reviewed the patient's medical records. Screening: Per USPSTF and CDC recommendations, given the prevalence of disease in our region, it is our hospital?s policy to screen for HIV and viral Hepatitis for all patients aged 18 and over and those with ongoing risk factors. [place] Inquiry Pt receiving controlled substance: No Vital Signs: 08/10/24 21:33 Temperature 98.7 F Temperature Source Oral Pulse Rate [Right Apical] 78 Respiratory Rate 16 Blood Pressure [Right Arm] 126/79 Blood Pressure Mean [Right Arm] 94 Blood Pressure Source [Right Arm] Automatic Cuff Blood Pressure Position [Right Arm] Sitting 02 Sat by Pulse Oximetry 98 Oxygen Delivery Method Room Air Lab Data Lab results reviewed: Yes I reviewed the patient's lab results. Orders (Tests/Meds): ED MEDICATIONS Discontinued Medications Generic Name Dose Route Start Last Admin Trade Name Wagnerq PRN Reason Stop Dose Admin Acetaminophen 1,000 mg 08/10/24 21:42 08/10/24 21:46 Acetaminophen 500mg Tab PO 08/10/24 21:43 1,000 mg ONCE ONE Administration Ketorolac Tromethamine 30 mg 08/10/24 22:22 08/11/24 00:04 Ketorolac 30mg/Ml Vial IM 08/10/24 22:23 Not Given ONCE ONE ORDERS Category Date Time Status CT cervical spine wo con Stat Cat Scan 08/10/24 22:[address] head/brain wo con Stat Cat Scan 08/10/24 22:22 Completed Hand XR left minimum 3 views [XR hand LT min 3V] Stat Exams 08/10/24 21:44 Completed XR wrist LT min 3V Stat Exams 08/10/24 21:42 Completed Medical Decision Narrative: In summary, this patient is a 79-year-old female presenting to the Emergency Department for evaluation of left hand/wrist pain after trip up stairs. Differential diagnoses considered include but are not limited to hand fracture, contusion, strain/sprain, head trauma, polytrauma. Ruling out the most morbid conditions drove assessment. It should be noted patient's history includes hypertension, hyperlipidemia, diabetes which may or may not be at goal therapy. This complicates all aspects of care by increasing patient's risk for morbidity. On exam, the patient is well-appearing. She has tenderness to palpation of her left hand/wrist but is neurovascularly intact distally with no open wounds. Workup included CT head and C-spine without contrast, x-rays of the left hand and wrist. She was given oral Tylenol and IM Toradol for symptomatic improvement. I independently interpreted CT and x-ray prior to the radiologist read and noted no intracranial hemorrhage, no skull fracture, no C-spine fracture, no obvious hand fracture. Please see their read for final interpretation. On reassessment, the patient is resting comfortably and remains neurologically intact. Given the location of pain, I placed the patient in a thumb spica splint despite negative x-rays. This was a removable prefabricated splint. She tolerated this well and remained neurovascularly intact afterwards. Ultimately, I feel she is appropriate for discharge home with close follow-up on an outpatient basis for reassessment and possible repeat x-ray. Strict return precautions given Critical Care Critical Care Time Critical Care Time: No
[2024-08-11 00:04] VITALS: BP 134/68; PULSE 74; RESP 16; TEMP 36.6; O2SAT 100
== END 2024-08-11 00:05 | disposition home or self-care (01) ==
PROVIDERS: Emergency Provider Emergency Medicine; PCP Family Medicine
DX: M79.642 Pain in left hand (principal); W10.8XXA Fall (on) (from) other stairs and steps, initial encounter
CPT/HCPCS: 70450; 72125; 73110; 73130; 96372; 99285

== ENCOUNTER 2025-01-07 15:08 | Outpatient (CLI) | payer MEDICARE, MEDICAID, SELFPAY ==
--- OUTSIDE RECORDS SUMMARY | 2020-05-25 11:00 | XMS_ITS | Encounter Summary ---
[facility] Address [address] [place] [address] Care Team Providers Care Heating Equipment Repairer Name Role Phone Adrianna Landaverde DO Primary Care Provider [phone] Reason for Visit * Diagnostic Imaging (Routine) - Closed Specialty Diagnoses / Procedures Referred By Contac t Referred To Contact Diagnoses Post-menopausal Screening for osteoporosis Procedures DEXA Bone Density Axial Adrianna Landaverde DO [address] [place] [address] Phone: tel: fax: [facility] [address] [place] [address] Phone: tel: fax: Referral ID Status Reason Start Date Expiration Date Visits Re quested Visits Authorized [id number] Closed 03/27/2020 03/27/2021 1 1 Encounter Details Date Type Department Care Team (Late st Contact Info) Description 05/25/2020 10:00 AM EST Hospital Encounter [facility] [address] [place] [address] Social History Tobacco Use Types Packs/Day Years Used Date Smoking Tobacco: Never Smokeless Tobacco: Never Alcohol Use Standard Drinks/Week Comments No 0 (1 standard drink = 0.6 oz pur e alcohol) PHQ-2 Answer Date Recorded Retired PHQ-9: Brief Depression Severity Measure Score 13 07/04/2022 PHQ-2 Answer Date Recorded Patient Health Questionnaire-9 Score 8 06/25/2024 Comments No Sex and Gender Information Value Date Recorded Sex Assigned at Not on file Legal Sex Female 2:27 PM EDT Gender Identity Not on file Sexual Orientation Not on file documented as of this encounter Functional Status documented as of this encounter Plan of Treatment Upcoming Encounters Date Type Department Care Team (Late st Contact Info) Description 01/13/2025 9:00 AM EDT Office Visit [facility] [address] [id number] Adrianna Landaverde DO [address] [id number] documented as of this encounter Procedures Procedure Name Priority Date/Time Associated Diagnosis Comments DEXA BONE DENSITY AXIAL Routine 05/25/2020 10:20 AM EST Post-menopausal Screening for osteoporosis documented in this encounter Results * DEXA Bone Density Axial (05/25/2020 10:20 AM EST) Anatomical Region Laterality Modality Wrist, Hip, L-spine N/A Bone Density Narrative 06/07/2020 6:22 PM EDT Bone Density Scan Findings Consistent with Osteoporosis and Osteopenia of femur. Unable to interpret spine to possible compression. Would recommend Calcium , Vitamin D, Weight Bearing Exercises and Consider medical therapy. Follow Up Repeat Study in 2 Years Jax Dickinson MD Adrianna Landaverde DO IMG DXA ORDERABLES Final Re sult documented in this encounter Visit Diagnoses Not on filedocumented in this encounter Care Teams Heating Equipment Repairer Relationship Specialty Start Date End Date Adrianna Landaverde DO [address] [address] PCP - General Family Medicine 08/20/17 documented as of this encounter
--- OUTSIDE RECORDS SUMMARY | 2024-12-09 08:15 | XMS_ITS | Encounter Summary ---
[facility] Address [address] [place] [address] Care Team Providers Care Freight Shipping Agent Name Role Phone Adrianna Landaverde Primary Care Provider [phone] Reason for Visit * Reason Comments Hyperglycemia X couple weeks Encounter Details Date Type Department Care Team (Late st Contact Info) Description 12/09/2024 8:15 AM EDT Office Visit [facility] [address] [facility] [place] [address] Tigre Mead, PATania [address] [facility] [place] [address] Uncontrolled type 2 diabetes mellitus with hypoglycemia without coma (Primary Dx); CKD stage 2 due to type 2 diabetes mellitus; Abnormal blood sugar Social History Tobacco Use Types Packs/Day Years [...] on file documented as of this encounter Last Filed Vital Signs Vital Sign Reading Time Taken Comments Blood Pressure 122/86 12/09/2024 8:10 AM EDT Pulse 86 12/09/2024 8:10 AM EDT Temperature 36.9 C (98.4 F) 12/09/2024 8:10 AM EDT Respiratory Rate 18 12/09/2024 8:10 AM EDT Oxygen Saturation 96% 12/09/2024 8:10 AM EDT Inhaled Oxygen Concentration - - Weight 73 kg (161 lb) 12/09/2024 8:10 AM EDT Height 153.2 cm (5' 0.3 ) 12/09/2024 8:10 AM EDT Body Mass Index 31.13 12/09/2024 8:10 AM EDT documented in this encounter Progress Notes * Tigre Mead PA-C - 12/09/2024 10:07 AM EDTAssociated Problem(s): Uncontrolled type 2 diabetes mellitus with hypoglycemia without coma Diabetes is improving with treatment. Discussed with patient that her A1c demonstrates that her diabetes is well controlled and actually improving. It is unlikely that her blood sugar is contributingto her symptoms. Recommend keeping a log of abnormal blood sugars along with the date, time, and whether patient is fasting to bring to her next regular appointment if symptoms persist. Continue current treatment regimen. Reminded to bring in blood sugar diary at next visit. Regular aerobic exercise. Discussed ways to avoid symptomatic hypoglycemia. Reminded to get yearly retinal exam. Diabetes will be reassessed at next regular appointment * Tigre Mead PA-C - 12/09/2024 8:15 AM EDT Images from the original note were not included. Office Note Name: Alicia Bajwa : 1945 Chief Complaint Hyperglycemia (X couple weeks /) Subjective History of Present Illness: Alicia Bajwa is a 79 y.o. female who presents today with concerns of elevated blood sugar. Admits to noticing a higher trend in her blood sugar over the past few weeks on her Dexcom. States that last Friday it was 297 after eating breakfast. Is concerned that her medications are no longer working. Does admit to occasionally forgetting to take her medications. Has not compared Dexcom readings to a finger-stick. Patient states she feels off and more tired than normal and felt it was related to her blood sugar. Blood sugar in office was 110 (fasting) and A1c was 7.2 (improved from 7.5 6months ago). Patient does not regularly check her blood pressure at home. Does feel that her vision occasionallygets blurry when reading. No other associated signs or symptoms. No recent changes in medication. No changes in diet or lifestyle. Past Medical History: Past Medical History: Diagnosis Date AC (acromioclavicular) joint bone spurs both ankles Asthma Cancer Depression Diabetes mellitus Diverticulosis Fatty liver Hyperlipidemia Hypertension Irritable bowel syndrome DIARRHEA Stroke Past Surgical History: Past Surgical History: Procedure Laterality Date COLONOSCOPY GASTROSTOMY HYSTERECTOMY REPLACEMENT TOTAL KNEE BILATERAL ROTATOR CUFF REPAIR Immunizations: Immunization History Administered Date(s) Administered ABRYSVO (RSV, 60+ or women 32-36 wks) 03/08/2024 COVID-19 (MODERNA) 12YRS+ (SPIKEVAX) 02/26/2023 COVID-19 (MODERNA) 1st,2nd,3rd Dose Monovalent 04/26/2020, 05/24/2020, 01/20/2021, 08/14/2021 COVID-19 (PFIZER) 12YRS+ (COMIRNATY) 02/09/2024 FLUAD TRI 65YR+ 02/09/2024 Fluad Quad 65+ 01/02/2021, 11/27/2021 Fluzone >6mos 12/04/2010 Fluzone High-Dose 65+YRS 01/19/2019, 12/29/2019 Fluzone High-Dose 65+yrs 12/29/2019, 02/10/2023 Hep A / Hep B 01/03/2020, 01/25/2020 Hepatitis A 12/16/2018 Pneumococcal Conjugate 13-Valent (PCV13) 03/17/2015, 01/19/2019 Pneumococcal Conjugate 20-Valent (PCV20) 06/19/2022 Pneumococcal Polysaccharide (PPSV23) 01/26/2018 Shingrix 07/31/2022, 10/03/2022 Tdap 04/05/2014 Medications: Current Outpatient Medications: buPROPion (WELLBUTRIN) 75 MG tablet, TAKE 1 TABLET BY MOUTH TWICE DAILY, Disp: 60 tablet, Rfl: 1 alendronate (FOSAMAX) 70 MG tablet, TAKE 1 TABLET BY MOUTH EVERY 7 DAYS, TAKE WITH WATER 30 MINUTESBEFORE FIRST FOOD/DRINK, AVOID LYING DOWN FOR 30 MINUTES AFTER, Disp: 4 tablet, Rfl: 0 aspirin 81 MG EC tablet, Take 1 tablet by mouth Daily., Disp: , Rfl: azelastine (ASTELIN) 0.1 % nasal spray, Administer 2 sprays into the nostril(s) as directed by provider 2 (Two) Times a Day. Use in each nostril as directed, Disp: , Rfl: Continuous Glucose Typewriter Repairer (Dexcom G6 Typewriter Repairer) device, USE DIRECTED, Disp: 1 each, Rfl: 0 Continuous Glucose Sensor (Dexcom G6 Sensor), Place on the skin as directed by provider Every 10 (Ten) Days., Disp: 9 each, Rfl: 2 Continuous Glucose Transmitter (Dexcom G6 Transmitter) misc, Inject 1 Device under the skin into the appropriate area as directed Take As Directed. Use as directed, Disp: 1 each, Rfl: 3 DULoxetine (CYMBALTA) 30 MG capsule, Take 1 capsule by mouth Daily., Disp: 90 capsule, Rfl: 1 DULoxetine (CYMBALTA) 60 MG capsule, TAKE 1 CAPSULE BY MOUTH ONCE DAILY WITH 30MG CAPSULE, Disp: 90capsule, Rfl: 1 fluocinonide (LIDEX) 0.05 % external solution, Apply topically to the appropriate area as directed Daily., Disp: , Rfl: hydrOXYzine (ATARAX) 25 MG tablet, Take 1 tablet by mouth Every 8 (Eight) Hours As Needed for Itching., Disp: 60 tablet, Rfl: 2 indomethacin (INDOCIN) 25 MG capsule, Take 1 capsule by mouth 2 (Two) Times a Day With Meals., Disp: 60 capsule, Rfl: 2 Januvia 100 MG tablet, TAKE 1 TABLET BY MOUTH DAILY, Disp: 90 tablet, Rfl: 1 Jardiance 25 MG tablet tablet, TAKE 1 TABLET BY MOUTH DAILY, Disp: 90 tablet, Rfl: 1 meclizine (ANTIVERT) 25 MG tablet, Take 1 tablet by mouth 3 (Three) Times a Day As Needed for Dizziness., Disp: 15 tablet, Rfl: 1 metFORMIN ER (GLUCOPHAGE-XR) 500 MG 24 hr tablet, TAKE 1 TABLET BY MOUTH DAILY WITH BREAKFAST, Disp: 90 tablet, Rfl: 1 montelukast (SINGULAIR) 10 MG tablet, TAKE 1 TABLET BY MOUTH EVERY NIGHT, Disp: 90 tablet, Rfl: 1 Myrbetriq 50 MG tablet sustained-release 24 hour 24 hr tablet, TAKE 1 TABLET BY MOUTH DAILY, Disp: 30 tablet, Rfl: 1 oxybutynin XL (DITROPAN-XL) 10 MG 24 hr tablet, Take 1 tablet by mouth Daily., Disp: , Rfl: pantoprazole (PROTONIX) 40 MG EC tablet, Take 1 tablet by mouth Daily., Disp: , Rfl: rosuvastatin (CRESTOR) 20 MG tablet, TAKE 1 TABLET BY MOUTH ONCE DAILY IN THE EVENING. KEEP UPCOMING APPOINTMENTS, Disp: 90 tablet, Rfl: 1 traMADol (ULTRAM) 50 MG tablet, TAKE 1 TABLET BY MOUTH EVERY 8 HOURS NEEDED FOR MODERATE PAIN, Disp: 60 tablet, Rfl: 0 Allergies: No Known Allergies Family History: Family History Problem Relation Age of Onset Breast cancer Mother unknown Arthritis Mother Diabetes Mother Hypertension Mother Obesity Mother Liver disease Sister Hyperlipidemia Maternal Grandmother Stroke Maternal Grandmother Ovarian cancer Neg Hx Social History: Social History Socioeconomic History Marital status: Tobacco Use Smoking status: Never Smokeless tobacco: Never Vaping Use Vaping status: Never Used Substance and Sexual Activity Alcohol use: No Drug use: No Sexual activity: Never Objective Vital Signs BP 122/86 Pulse 86 Temp 98.4 ??F (36.9 ??C) Resp 18 Ht 153.2 cm (60.3 ) Wt 73 kg (161 lb) SpO2 96% BMI 31.13 kg/m?? Estimated body mass index is 31.13 kg/m?? as calculated from the following: Height as of this encounter: 153.2 cm (60.3 ). Weight as of this encounter: 73 kg (161 lb). Physical Exam Vitals and nursing note reviewed. Constitutional: Appearance: Normal appearance. HENT: Head: Normocephalic and atraumatic. Cardiovascular: Rate and Rhythm: Normal rate and regular rhythm. Heart sounds: No murmur heard. No friction rub. No gallop. Pulmonary: Effort: Pulmonary effort is normal. Breath sounds: Normal breath sounds. No wheezing, rhonchi or rales. Skin: General: Skin is warm and dry. Neurological: General: No focal deficit present. Mental Status: She is alert and oriented to person, place, and time. Psychiatric: Mood and Affect: Mood normal. Behavior: Behavior normal. Assessment and Plan Diagnoses and all orders for this visit: 1. Uncontrolled type 2 diabetes mellitus with hypoglycemia without coma (Primary) Assessment & Plan: Diabetes is improving with treatment. Discussed with patient that her A1c demonstrates that her diabetes is well controlled and actually improving. It is unlikely that her blood sugar is contributingto her symptoms. Recommend keeping a log of abnormal blood sugars along with the date, time, and whether patient is fasting to bring to her next regular appointment if symptoms persist. Continue current treatment regimen. Reminded to bring in blood sugar diary at next visit. Regular aerobic exercise. Discussed ways to avoid symptomatic hypoglycemia. Reminded to get yearly retinal exam. Diabetes will be reassessed at next regular appointment Orders: - CBC & Differential - Comprehensive Metabolic Panel 2. CKD stage 2 due to type 2 diabetes mellitus - CBC & Differential - Comprehensive Metabolic Panel 3. Abnormal blood sugar - POCT Glucose - POC Glycosylated Hemoglobin (Hb A1C) Follow Up No follow-ups on file. JERI Cherry [facility] [address] [place] [address] documented in this encounter Plan of Treatment Upcoming Encounters Date Type Department Care Team (Late st Contact Info) Description 01/13/2025 9:00 AM EDT Office Visit [facility] [address] [place] [address] Adrianna Landaverde DO [address] [place] [address] documented as of this encounter Procedures Procedure Name Priority Date/Time Associated Diagnosis Comments CBC AND DIFFERENTIAL Routine 12/09/2024 9:01 AM EDT Uncontrolled type 2 diabetes mellitus with hypoglycemia without coma CKD stage 2 due to type 2 diabetes mellitus COMPREHENSIVE METABOLIC PANEL Routine 12/09/2024 9:01 AM EDT Uncontrolled type 2 diabetes mellitus with hypoglycemia without coma CKD stage 2 due to type 2 diabetes mellitus POCT GLYCOSYLATED HEMOGLOBIN (HGB A1C) Routine 12/09/2024 8:48 AM EDT Abnormal blood sugar POCT GLUCOSE FINGERSTICK Routine 12/09/2024 8:16 AM EDT Abnormal blood sugar documented in this encounter Results * (ABNORMAL) Comprehensive Metabolic Panel (12/09/2024 9:01 AM EDT) Glucose 132(H) 65 - 99 mg/dL [facility] BUN 22.0 8.0 - 23.0 mg/dL [facility] Creatinine 1.05(H) 0.57 - 1.00 mg/dL [facility] EGFR Result 53.8(L) >60.0 mL/min/1.7 3 [facility] Comment: GFR Categories in Chronic Kidney Disease (CKD) GFR Category GFR (mL/min/1.73) Interpretation G1 90 or greater Normal or high (1) G2 60-89 Mild decrease (1) G3a 45-59 Mild to moderate decrease G3b 30-44 Moderate to severe decrease G4 15-29 Severe decrease G5 14 or less Kidney failure (1)In the absence of evidence of kidney disease, neither GFR category G1 or G2 fulfill the criteria for CKD. eGFR calculation 2020 CKD-EPI creatinine equation, which does not include race as a factor BUN/Creatinine Ratio 21.0 7.0 - 25.0 [facility] Sodium 144 136 - 145 mmol/L [facility] Potassium 4.1 3.5 - 5.2 mmol/L [facility] Chloride 105 98 - 107 mmol/L [facility] Total CO2 23.6 22.0 - 29.0 mmol/L [facility] Calcium 9.9 8.6 - 10.5 mg/dL [facility] Total Protein 6.9 6.0 - 8.5 g/dL [facility] Albumin 4.3 3.5 - 5.2 g/dL [facility] Globulin 2.6 gm/dL [facility] A/G Ratio 1.7 g/dL [facility] Total Bilirubin 0.3 0.0 - 1.2 mg/dL [facility] Alkaline Phosphatase 85 39 - 117 U/L [facility] AST (SGOT) 22 1 - 32 U/L [facility] ALT (SGPT) 19 1 - 33 U/L [facility] Blood 12/09/2024 9:01 AM EDT 12/09/2024 Narrative [facility] ([facility]) - 12/10/2024 3:07 AM EDT Performed at: [address] [place] [id number] Compound Filler: Drew Dos Santos MD, Phone: [phone] Patient Fasting: N Tigre Mead PA-C LAB BLOOD ORDERABLES Final R esult [facility] ([facility]) [address] [place] [address], [facility] [address] [place] [address], * (ABNORMAL) CBC & Differential (12/09/2024 9:01 AM EDT) [facility] WBC 9.77 3.40 - 10.80 10*3/mm3 [facility] RBC 4.67 3.77 - 5.28 10*6/mm3 [facility] Hemoglobin 14.4 12.0 - 15.9 g/dL [facility] Hematocrit 44.4 34.0 - 46.6 % [facility] MCV 95.1 79.0 - 97.0 fL [facility] MCH 30.8 26.6 - 33.0 pg [facility] MCHC 32.4 31.5 - 35.7 g/dL [facility] RDW 13.3 12.3 - 15.4 % [facility] Platelets 246 140 - 450 10*3/mm3 [facility] Neutrophil Rel % 53.9 42.7 - 76.0 % [facility] Lymphocyte Rel % 35.5 19.6 - 45.3 % [facility] Monocyte Rel % 6.8 5.0 - 12.0 % [facility] Eosinophil Rel % 3.1 0.3 - 6.2 % [facility] Basophil Rel % 0.5 0.0 - 1.5 % [facility] Neutrophils Absolute 5.27 1.70 - 7.00 10*3/mm3 [facility] Lymphocytes Absolute 3.47(H) 0.70 - 3.10 10*3/mm3 [facility] Monocytes Absolute 0.66 0.10 - 0.90 10*3/mm3 [facility] Eosinophils Absolute 0.30 0.00 - 0.40 10*3/mm3 [facility] Basophils Absolute 0.05 0.00 - 0.20 10*3/mm3 [facility] Immature Granulocyte Rel % 0.2 0.0 - 0.5 % [facility] Immature Grans Absolute 0.02 0.00 - 0.05 10*3/mm3 [facility] nRBC 0.0 0.0 - 0.2 /100 WBC [facility] Blood 12/09/2024 9:01 AM EDT 12/09/2024 Narrative [facility] ([facility]) - 12/10/2024 3:07 AM EDT Performed at: [address] [place] [address] [id number] Compound Filler: Drew Dos Santos MD, Phone: [phone] Patient Fasting: N us Tigre Mead PA-C LAB BLOOD ORDERABLES Final R esult [facility] ([facility]) [address] [place] [address], [place] [phone] [facility] [address] [place] [address], [place] [phone] * (ABNORMAL) POC Glycosylated Hemoglobin (Hb A1C) (12/09/2024 8:48 AM EDT) [facility] Hemoglobin A1C 7.2(A) 4.5 - 5.7 % [facility] Lot Number [id number] [facility] Expiration Date 06/17/2026 [facility] Blood 12/09/2024 8:48 AM EDT us Tigre Mead PA-C POINT OF CARE TEST ORDERABLE S Final Result [facility]
[address] [place] [address], * POCT Glucose (12/09/2024 8:16 AM EDT) Glucose 110 70 - 130 mg/dL Blood 12/09/2024 8:16 AM EDT Tigre Mead PA-C POINT OF CARE TEST ORDERABLE S Final Result documented in this encounter Visit Diagnoses Diagnosis Uncontrolled type 2 diabetes mellitus with hypoglycemia without coma- Primary CKD stage 2 due to type 2 diabetes mellitus Abnormal blood sugar Other abnormal glucose documented in this encounter Additional Health Concerns Assessment Noted Time PHQ-2 Depression Total Score: 3 08/13/19 24 11:02 AM EDT documented as of this encounter Care Teams Freight Shipping Agent Relationship Specialty Start Date End Date Adrianna Landaverde DO [address] [facility] [place] [address] PCP - General Family Medicine 08/20/17 documented as of this encounter
--- NOTE | 2025-01-07 15:11 | XR_ITS ---
FINAL REPORT CLINICAL HISTORY: Pain following fall x 1 week ago FINDINGS: No fracture is identified. There is moderate to severe diffuse degenerative disc disease. Moderate facet arthropathy is identified. Alignment is normal. IMPRESSION: Advanced degenerative changes without fracture. Recommend MRI should symptoms persist. Reviewed, Interpreted and Dictated by Giles Hennessy MD Transcribed by Alexia Farris Authenticated and [facility]
--- OUTSIDE RECORDS SUMMARY | 2025-01-07 15:11 | XMS_ITS | Encounter Summary ---
[facility] Address [address] [place] [address] Care Team Providers Care Packer Fuser Name Role Phone Adrianna Landaverde DO Primary Care Provider [phone] Reason for Visit * Reason Comments Med Refill Encounter Details Date Type Department Care Team ([facility] Contact Info) Description 12/13/2024 Refill [facility] [address] [place] [address] Adrianna Landaverde DO [address] [place] [address] Type 2 diabetes mellitus with hyperglycemia, without long-term current use of insulin Social History Tobacco Use Types Packs/Day Years [...] on file documented as of this encounter Plan of Treatment Upcoming Encounters Date Type Department Care Team ([facility] Contact Info) Description 01/13/2025 9:00 AM EDT Office Visit [facility] [address] [place] [address] Adrianna Landaverde DO [address] [place] [address] documented as of this encounter Visit Diagnoses Diagnosis Type 2 diabetes mellitus with hyperglycemia, without long-term current use of insulin documented in this encounter Additional Health Concerns Assessment Noted Time PHQ-2 Depression Total Score: 3 08/13/19 24 11:02 AM EDT documented as of this encounter Care Teams Packer Fuser Relationship Specialty Start Date End Date Adrianna Landaverde DO [address] [place] [address] PCP - General Family Medicine 08/20/17 documented as of this encounter
--- OUTSIDE RECORDS SUMMARY | 2025-01-07 15:11 | XMS_ITS | Encounter Summary ---
[facility] [address] [place] [address] Care Team Providers Care Metalsmith Name Role Phone Adrianna Landaverde DO Primary Care Provider [phone] Encounter Details Date Type Department Care Team ([facility] Contact Info) Description 12/14/2024 Refill [facility] [address] [place] [address] Adrianna Landaverde DO [address] [place] [address] Moderate episode of recurrent major depressive disorder Social History Tobacco Use Types Packs/Day Years [...] Upcoming Encounters Date Type Department Care Team ([facility] Contact Info) Description 01/13/2025 9:00 AM EDT Office Visit [facility] [address] [place] [address] Adrianna Landaverde DO [address] [place] [address] documented as of this encounter Visit Diagnoses Diagnosis Moderate episode of recurrent major depressive disorder documented in this encounter Additional Health Concerns Assessment Noted Time PHQ-2 Depression Total Score: 3 08/13/19 24 11:02 AM EDT documented as of this encounter Care Teams Metalsmith Relationship Specialty Start Date End Date Adrianna Landaverde DO [address] [place] [address] PCP - General Family Medicine 08/20/17 documented as of this encounter
--- OUTSIDE RECORDS SUMMARY | 2025-01-07 15:11 | XMS_ITS | Data Portability ---
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 14:03:09 OBGyn Episode No OBEpisode recorded.
--- OUTSIDE RECORDS SUMMARY | 2025-01-07 15:11 | XMS_ITS | Encounter Summary ---
[facility] Address [address] [place] [address] Care Team Providers Care Slat Basket Maker Name Role Phone Adrianna Landaverde DO Primary Care Provider [phone] Encounter Details Date Type Department Care Team ([facility] Contact Info) Description 12/10/2024 Results Follow-Up [facility] MED[facility] [address] [facility] [place] [address] Tigre Mead, PAKristenC [address] [place] [address] Social History Tobacco Use Types Packs/Day Years [...] Upcoming Encounters Date Type Department Care Team ([facility] Contact Info) Description 01/13/2025 9:00 AM EDT Office Visit [facility] FAMILY MEDICINE [address] [facility] [place] [address] Adrianna Landaverde DO [address] [place] [address] documented as of this encounter Visit Diagnoses Not on filedocumented in this encounter Additional Health Concerns Assessment Noted Time PHQ-2 Depression Total Score: 3 08/13/19 24 11:02 AM EDT documented as of this encounter Care Teams Slat Basket Maker Relationship Specialty Start Date End Date Adrianna Landaverde DO [address] [place] [address] PCP - General Family Medicine 08/20/17 documented as of this encounter
--- OUTSIDE RECORDS SUMMARY | 2025-01-07 15:11 | XMS_ITS | Encounter Summary ---
Author Organization [facility] Address [address] [place] [address] Care Team Providers Care Roadmaster Name Role Phone Adrianna Landaverde DO Primary Care Provider [phone] Encounter Details Date Type Department Care Team ([facility] st Contact Info) Description 12/13/2024 Telephone [facility] [address] [place] [address] Adrianna Landaverde DO [address] [facility] [place] [address] Social History Tobacco Use Types [...] on file documented as of this encounter Miscellaneous Notes * Telephone Encounter - Rylie Simpson RegSched Rep - 12/14/2024 9:16 AM EDT SPOKE WITH PATIENT REGARDING NEEDING AN APPOINTMENT, NOTED THAT SHE ALREADY HAD AN APPOINTMENT FOR 01/13 AND OFFERED TO GET THAT RESCHEDULED TO BE SEEN SOONER. PATIENT DECLINED SAYING THAT HER SWELLING HAS WENT DOWN AND WILL JUST KEEP THAT ORIGINAL APPOINTMENT AND DISCUSS IT THEN. * Telephone Encounter - Stuart Pearson RegSched Rep - 12/13/2024 11:01 AM EDT Caller: Alicia Bajwa Relationship: Self Best call back number: Telephone Information: What medication are you requesting: MEDICINE FOR SWELLING IN FEET AND LEGS What are your current symptoms: SWOLLEN FEET AND LEGS How long have you been experiencing symptoms: ABOUT A WEEK OR SO If a prescription is needed, what is your preferred pharmacy and phone number: [id number] - [place], [place] - [address] [address] [address] - [phone] [facility] [phone] Additional notes: PLEASE CALL PATIENT WHEN RX IS SENT IN, OR IF REQUEST IS DENIED documented in this encounter Plan of Treatment Upcoming Encounters Date Type Department Care Team (Late st Contact Info) Description 01/13/2025 9:00 AM EDT Office Visit [facility] [address] [place] [id number] Adrianna Landaverde DO [address] [place] [address] documented as of this encounter Visit Diagnoses Not on filedocumented in this encounter Additional Health Concerns Assessment Noted Time PHQ-2 Depression Total Score: 3 08/13/19 24 11:02 AM EDT documented as of this encounter Care Teams Roadmaster Relationship Specialty Start Date End Date Adrianna Landaverde DO [address] [place] [address] PCP - General Family Medicine 08/20/17 documented as of this encounter
--- OUTSIDE RECORDS SUMMARY | 2025-01-07 15:11 | XMS_ITS | Clinical Summary ---
Author Organization [facility] ([place], [place], [place], [place]) Address [address] [place] [address] Care Team Providers Care Lead Cook Name Role Phone Unavailable Primary Care Provider Unavailabl e Social History Tobacco Use Types Packs/Day Years Used Date Smoking Tobacco: Never Assessed Comments Unknown Sex and Gender Information Value Date Recorded Sex Assigned at Not on file Legal Sex Female 3:42 PM CDT Gender Identity Not on file Sexual Orientation Not on file Plan of Treatment Not on file
--- OUTSIDE RECORDS SUMMARY | 2025-01-07 15:11 | XMS_ITS | Encounter Summary ---
Author Organization Healthcare Address [address] [place] [address] Care Team Providers Care Foundry Engineer Name Role Phone Adrianna Landaverde Primary Care Provider [phone] Jocelyne Olmstead PA Unavailable [phone] Encounter Details Date Type Department Care Team (Late Contact Info) Description 01/20/2024 Orders Only External Location [address] [place] [address] Provider, External Social History Tobacco Use Types Packs/Day Years Used Date Smoking Tobacco: Never Smokeless Tobacco: Never Alcohol Use Standard Drinks/Week Comments Not Currently 0 (1 standard drink = 0.6 oz pur e alcohol) PHQ-2 Answer Date Recorded Patient Health Questionnaire-2 Score 0 07/24/2023 Comments Unknown Sex and Gender Information Value Date Recorded Sex Assigned at Not on file Legal Sex Female 7:50 PM EDT Gender Identity Not on file Sexual Orientation Not on file documented as of this encounter Plan of Treatment Upcoming Encounters Date Type Department Care Team (Late Contact Info) Description 03/03/2025 12:00 PM EST Office Visit [facility]phrology, Bone & Mineral Metabolism [address], [address] [place] [address] Jimenez Stevens MD [address] [place] [address] 08/04/2025 10:00 AM EDT Appointment [facility] Ultrasound [address] [place] [address] 08/04/2025 11:30 AM EDT Office Visit Medical Office Building Urology [address], [address] [place] [address] KathleenVega ospinayssa Beatriz, DESTATICIZER FEEDER [address] [place] [address] documented as of this encounter Procedures Procedure Name Priority Date/Time Associated Diagnosis Comments CT OUTSIDE IMAGES 01/20/2024 5:07 PM EST documented in this encounter Results * CT OUTSIDE IMAGES (01/20/2024 5:07 PM EST) Anatomical Region Laterality Modality Computed Tomogra phy 01/20/2024 5:07 PM EST us External Provider IMG CT PROCEDURES Final Result documented in this encounter Visit Diagnoses Not on filedocumented in this encounter Additional Health Concerns Assessment Noted Time A fall risk assessment has been complete d for the patient 07/24/2023 3:38 PM EDT A Body Mass Index follow-up plan has been documented for the patient 07/30/2023 10:11 PM EDT documented as of this encounter Care Teams Foundry Engineer Relationship Specialty Start Date End Date Adrianna Landaverde DO [address] [place] [address] PCP - General 06/12/23 Jocelyne Olmstead PA [address] [place] [address] Physician Buggy Driver Urology 06/12/23 documented as of this encounter
--- OUTSIDE RECORDS SUMMARY | 2025-01-07 15:11 | XMS_ITS | Clinical Summary ---
Author Organization Healthcare Address [address] [place] [address] Care Team Providers Care Attache Name Role Phone Adrianna Landaverde Primary Care Provider [phone] Jocelyne Olmstead PA Unavailable [phone] Allergies No known active allergies Medications Januvia 100 MG tablet Take 1 tablet (100 mg) by mouth 1 (one) time each day. 4 Active montelukast (Singulair) 10 MG tablet Take 1 tablet (10 mg) by mouth every night. 4 Active DULoxetine (Cymbalta) [address] capsule TAKE 1 CAPSULE BY MOUTH ONCE DAILY. TAKE WITH 30MG 4 Active DULoxetine (Cymbalta) [address] capsule TAKE 1 CAPSULE BY MOUTH ONCE DAILY WITH 60 MG 4 Active oxybutynin XL (Ditropan-XL) 10 MG 24 hr tablet Take 1 tablet (10 mg) by mouth 1 (one) time each day. 4 Active aspirin 81 MG EC tablet Take 1 tablet (81 mg) by mouth 1 (one) time each day. Active traMADol (Ultram) 50 MG tablet TAKE 1 TABLET BY MOUTH EVERY 8 HOURS NEEDED FOR MODERATE PAIN 4 Active azelastine (Astelin) 0.1 % nasal spray Administer 2 sprays into affected nostril(s) twice a day. Active eszopiclone (Lunesta) 1 MG tablet TAKE 2 TABLETS BY MOUTH AT 9 PM FOR CHRONIC INSOMNIA. MAX DAILY DOSE IS 2 TABLETS 3 Active Myrbetriq 50 MG tablet Take 1 tablet (50 mg) by mouth 1 (one) time each day. 4 Active Continuous Blood Gluc Sectionizer (Dexcom G6 per assessment nurse) device USE DIRECTED 3 Active Continuous Blood Gluc Sensor (Dexcom G6 Sensor) misc USE 1 UNIT DIRECTED 4 Active Continuous Blood Gluc Transmit (Dexcom G6 transmitter) misc USE DIRECTED TO MONITOR BLOOD SUGAR 3 Active meclizine (Antivert) 25 MG tablet TAKE 1 TABLET BY MOUTH THREE TIMES DAILY NEEDED FOR DIZZINESS 3 Active alendronate (Fosamax) 70 MG tablet 4 Active hydrOXYzine HCl (Atarax) 25 MG tablet TAKE 1 TO 2 TABLETS BY MOUTH EVERY 8 HOURS NEEDED FOR ITCHING 4 Active rosuvastatin (Crestor) 20 MG tablet 4 Active Jardiance 25 MG Take 1 tablet (25 mg) by mouth 1 (one) time each day. 4 Active metFORMIN XR (Glucophage-XR) 500 MG 24 hr tablet Take 1 tablet (500 mg) by mouth 1 (one) time each day with breakfast. 4 Active pantoprazole (Protonix) 40 MG EC tablet Take 1 tablet (40 mg) by mouth 1 (one) time each day. 4 Active Family History Medical History Relation Name Comments Cardiac Devices Pacemaker Present Mother Lung cancer Mother Relation Name Status Comments Mother Social History Tobacco Use Types Packs/Day Years Used Date Smoking Tobacco: Never Smokeless Tobacco: Never Tobacco Cessation:Counseling Given: Not Answered Alcohol Use Standard Drinks/Week Comments Not Currently 0 (1 standard drink = 0.6 oz pur e alcohol) PHQ-2 Answer Date Recorded Patient Health Questionnaire-2 Score 0 08/05/2024 PHQ-9 Answer Date Recorded Patient Health Questionnaire-9 Score 0 08/05/2024 Comments Unknown Sex and Gender Information Value Date Recorded Sex Assigned at Not on file Legal Sex Female 7:50 PM EDT Gender Identity Not on file Sexual Orientation Not on file Last Filed Vital Signs Vital Sign Reading Time Taken Comments Blood Pressure 127/74 03/02/2024 2:43 PM EST Pulse 68 03/02/2024 2:43 PM EST Temperature 37.1 C (98.7 F) 08/05/2024 12:51 PM EDT Respiratory Rate 18 03/02/2024 2:43 PM EST Oxygen Saturation 97% 08/05/2024 12:51 PM EDT Inhaled Oxygen Concentration - - Weight 73 kg (160 lb 15 oz) 08/05/2024 12:51 PM EDT Height 149.9 cm (4' 11 ) 08/05/2024 12:51 PM EDT Body Mass Index 32.51 08/05/2024 12:51 PM EDT Plan of Treatment Upcoming Encounters Date Type Department Care Team (Late st Contact Info) Description 03/03/2025 12:00 PM EST Office Visit [facility] [place] [facility], [facility] Mineral Metabolism [address], [address] [place] [address] Jimenez Stevens MD [address] [place] [address] 08/04/2025 10:00 AM EDT Appointment [facility] Ultrasound [address] [place] [address] 08/04/2025 11:30 AM EDT Office Visit Medical Office Building Urology [address], [address] [place] [address] Margaret Mchugh M, MACHINIST BRAKE [address] [place] [address] Health Maintenance Due Date Last Done Comments [facility]-/Child/Adol SDOH Screenings 1944 Diabetes: Dental Exam 1954 [facility]- SDOH Screenings 1962 [facility]-Adult SDOH Screenings 1962 [facility]-DTaP,Tdap,and Td Vaccines (2 - Td or Tdap) 04/05/2024 04/05/2014 [facility]-Medicare Annual Wellness (AWV) 08/12/2024 08/13/2023, 07/04/2022, 11/30/2020, Additional history exists [facility]-Bone Density Scan 08/30/2024 08/30/2022 [facility]-Diabetes: Hemoglobin A1C 09/10/2024 06/11/2024, 12/10/2023, 12/10/2023, Additional history exists [facility]-OSOQL-33 Vaccine ( season) 2024 02/09/2024, 02/26/2023, 08/14/2021, Additional history exists [facility]-Influenza Vaccine (#1) 11/15/202402/08, 02/10/2023, 11/27/2021, Additional history exists [facility]-Depression Screening 08/05/2025 08/05/2024, 07/16 [facility]-Hepatitis A Vaccines Aged Out 020, 01/03/2020, 12/16/2018 No longer eligible based on patient's age to complete this topic [facility]-Pneumococcal Vaccine: 50+ Years Completed 06/19/2022, 01/19/2019, 01/26/2018, Additional history exists [facility]-Zoster Vaccines Completed 10/03/2022, [facility]-RSV Vaccine: 60+ Years or Completed 03/08/2024 [facility]-Obesity Intervention Completed 025, 03/02/2024, 01/29/2024, Additional history exists HPV Vaccines Aged Out No longer eligi ble based on patient's age to complete this topic [facility]-HIB Vaccines Aged Out No longer e ligible based on patient's age to complete this topic [facility]-IPV Vaccines Aged Out No longer e ligible based on patient's age to complete this topic [facility]-Rotavirus Vaccines Aged Out No lo nger eligible based on patient's age to complete this topic Insurance [place] [id number] [place]ICAID-[place] MEDICARE Care Teams Attache Relationship Specialty Start Date End Date Adrianna Landaverde DO [address] [place] [address] PCP - General 06/12/23 Jocelyne Olmstead PA [address] [facility] [address] [place] [address] Physician Loan Manager Urology 06/12/23
--- OUTSIDE RECORDS SUMMARY | 2025-01-07 15:11 | XMS_ITS | Encounter Summary ---
[facility] Address [address] [place] [address] Care Team Providers Care Racker Octave Board Name Role Phone Adrianna Landaverde DO Primary Care Provider [phone] Reason for Visit * Reason Comments Med Refill Encounter Details Date Type Department Care Team ([facility] Contact Info) Description 12/09/2024 Refill [facility] MEDICINE [address] [place] [address] Adrianna Landaverde DO [address] [place] [address] Age-related osteoporosis without current pathological fracture Social History Tobacco Use Types Packs/Day Years [...] Upcoming Encounters Date Type Department Care Team ([facility] Contact Info) Description 01/13/2025 9:00 AM EDT Office Visit [facility] MEDICINE [address] [place] [address] Adrianna Landaverde DO [address] [place] [address] documented as of this encounter Visit Diagnoses Diagnosis Age-related osteoporosis without current pathological fracture documented in this encounter Additional Health Concerns Assessment Noted Time PHQ-2 Depression Total Score: 3 08/13/19 24 11:02 AM EDT documented as of this encounter Care Teams Racker Octave Board Relationship Specialty Start Date End Date Adrianna Landaverde DO [address] [place] [address] PCP - General Family Medicine 08/20/17 documented as of this encounter
--- OUTSIDE RECORDS SUMMARY | 2025-01-07 15:11 | XMS_ITS | Encounter Summary ---
Author Organization Healthcare Address [address] [place] [address] Care Team Providers Care Bobbin Trucker Name Role Phone Adrianna Landaverde DO Primary Care Provider [phone] Jocelyne Olmstead PA Unavailable [phone] Encounter Details Date Type Department Care Team (Late Contact Info) Description 03/31/2023 Orders Only External Location [address] [place] [address] Jax Kahn MD [address] [facility] [address] [id number] Social History Tobacco Use Types Packs/Day Years [...] 03/03/2025 12:00 PM EST Office Visit [facility] Nephrology, Bone & Mineral Metabolism [address], [address] [place] [address] Jimenez Stevens MD [address] [place] [address] 08/04/2025 10:00 AM EDT Appointment [facility] Ultrasound [address] [place] [address] 08/04/2025 11:30 AM EDT Office Visit Medical Office Building Urology [address], [address] [place] [address] Margaret Mchugh, HEALTH OUTREACH WORKER [address] [place] [address] documented as of this encounter Procedures Procedure Name Priority Date/Time Associated Diagnosis Comments US OUTSIDE IMAGES 03/31/2023 1:16 PM EST documented in this encounter Results * US OUTSIDE IMAGES (03/31/2023 1:16 PM EST) Anatomical Region Laterality Modality Ultrasound 03/31/2023 1:16 PM EST us Jax Kahn MD IMG US PROCEDURES Final Result documented in this encounter Visit Diagnoses Not on filedocumented in this encounter Care Teams Bobbin Trucker Relationship Specialty Start Date End Date Adrianna Landaverde DO [address] [place], [place] [id number] PCP - General 06/12/23 Jocelyne Olmstead PA [address] [place] [address] Physician Meter Reader Urology 06/12/23 documented as of this encounter
--- OUTSIDE RECORDS SUMMARY | 2025-01-07 15:11 | XMS_ITS | Referral Summary ---
Author Organization [facility] ([place], [place], [place], [place]) Address [address] [place] [address] Care Team Providers Care Laser Operator Name Role Phone Unavailable Primary Care Provider [...]
--- OUTSIDE RECORDS SUMMARY | 2025-01-07 15:11 | XMS_ITS | Encounter Summary ---
Author Organization Healthcare Address [address] [place] [address] Care Team Providers Care Midwife Name Role Phone Adrianna Landaverde Primary Care Provider [phone] Jocelyne Olmstead PA Unavailable [phone] Encounter Details Date Type Department Care Team (Late Contact Info) Description 12/24/2022 Orders Only External Location [address] [place] [address] Provider, External Social History Tobacco Use Types [...] 03/03/2025 12:00 PM EST Office Visit [facility] Nephrology, Bone & Mineral Metabolism [address], [address] [place] [address] Jimenez Stevens MD [address] [place] [address] 08/04/2025 10:00 AM EDT Appointment [facility] Ultrasound [address] [place] [address] 08/04/2025 11:30 AM EDT Office Visit Medical Office Building Urology [address], [address] [place] [address] Margaret Mchugh M, WEIR FISHER [address] [place] [address] documented as of this encounter Procedures Procedure Name Priority Date/Time Associated Diagnosis Comments CT MSK OUTSIDE IMAGES 12/24/2022 8:43 AM EDT documented in this encounter Results * CT MSK OUTSIDE IMAGES (12/24/2022 8:43 AM EDT) Anatomical Region Laterality Modality Computed Tomogra phy 12/24/2022 8:43 AM EDT us External Provider IMG CT PROCEDURES Final Result documented in this encounter Visit Diagnoses Not on filedocumented in this encounter Care Teams Midwife Relationship Specialty Start Date End Date Adrianna Landaverde DO [address] [place] [address] PCP - General 06/12/23 Jocelyne Olmstead PA [address] [facility] [address] [place] [address] Physician Topographic Computator Urology 06/12/23 documented as of this encounter
--- OUTSIDE RECORDS SUMMARY | 2025-01-07 15:12 | XMS_ITS | Encounter Summary ---
[facility] Address [address] [place] [address] Care Team Providers Care Software Database Architect Name Role Phone Adrianna Landaverde DO Primary Care Provider [phone] Reason for Visit * Reason Onset Date Comments Med Refill 12/24/2024 Encounter Details Date Type Department Care Team (Late st Contact Info) Description 12/24/2024 Refill [facility]INE [address] [place] [address] Adrianna Landaverde DO [address] [place] [address] Elevated LDL cholesterol level Social History Tobacco Use Types Packs/Day Years [...] Encounter - Rylie Simpson RegSched Rep - 12/24/2024 1:56 PM EDT PHARMACY REQUESTING ROSUVASTATIN REFILL documented in this encounter Plan of Treatment Upcoming Encounters Date Type Department Care Team (Late st Contact Info) Description 01/13/2025 9:00 AM EDT Office Visit [facility] MEDICINE [address] [address] Adrianna Landaverde DO [address] [place] [address] documented as of this encounter Visit Diagnoses Diagnosis Elevated LDL cholesterol level documented in this encounter Additional Health Concerns Assessment Noted Time PHQ-2 Depression Total Score: 3 08/13/19 24 11:02 AM EDT documented as of this encounter Care Teams Software Database Architect Relationship Specialty Start Date End Date Adrianna Landaverde DO [address] [place] [place] [address] PCP - General Family Medicine 08/20/17 documented as of this encounter
--- OUTSIDE RECORDS SUMMARY | 2025-01-07 15:12 | XMS_ITS | Encounter Summary ---
Author Organization [facility] Address [address] [place] [address] Care Team Providers Care Floor Runner Name Role Phone Adrianna Landaverde DO Primary Care Provider [phone] Reason for Visit * Reason Onset Date Comments Med Refill 01/03/2025 Encounter Details Date Type Department Care Team (Late st Contact Info) Description 01/03/2025 Refill [facility] [address] [place] [address] Adrianna Landaverde DO [address] [place] [address] Age-related osteoporosis without current pathological [...] encounter Miscellaneous Notes * Telephone Encounter - Harmony Shukla RegSched Rep - 01/03/2025 1:22 PM EDT Caller: Alicia Bajwa Relationship: Self Best call back number: [phone] Requested Prescriptions: Requested Prescriptions Pending Prescriptions Disp Refills alendronate (FOSAMAX) 70 MG tablet 4 tablet 0 Pharmacy where request should be sent: [id number] - [place] - [address] [address] [address] [address] - [phone] - [phone] FX Last office visit with prescribing clinician: 06/25/2024 Last telemedicine visit with prescribing clinician: Visit date not found Next office visit with prescribing clinician: 01/13/2025 Additional details provided by patient: PATIENT IS OUT. Does the patient have less than a 3 day supply: [x] Yes [] No Would you like a call back once the refill request has been completed: [] Yes [x] No If the office needs to give you a call back, can they leave a voicemail: [] Yes [x] No Ting Newman Rep 01/03/25 13:22 EDT documented in this encounter Plan of Treatment Upcoming Encounters Date Type Department Care Team (Late st Contact Info) Description 01/13/2025 9:00 AM EDT Office Visit [facility] [address] [place] [id number] Adrianna Landaverde DO [address] [place] [address] documented as of this encounter Visit Diagnoses Diagnosis Age-related osteoporosis without current pathological fracture documented in this encounter Additional Health Concerns Assessment Noted Time PHQ-2 Depression Total Score: 3 08/13/19 24 11:02 AM EDT documented as of this encounter Care Teams Floor Runner Relationship Specialty Start Date End Date Adrianna Landaverde DO [address] [place] [address] PCP - General Family Medicine 08/20/17 documented as of this encounter
--- OUTSIDE RECORDS SUMMARY | 2025-01-07 15:12 | XMS_ITS | Encounter Summary ---
Author Organization [facility] Address [address] [place] [address] Care Team Providers Care Adjunct Professor Of Law Name Role Phone Adrianna Landaverde DO Primary Care Provider [phone] Encounter Details Date Type Department Care Team (Late st Contact Info) Description 12/06/2024 Telephone [facility] [address] [facility] [place] [address] Adrianna Landaverde DO [address] [facility] [place] [address] Social History Tobacco Use Types [...] encounter Miscellaneous Notes * Telephone Encounter - Swati Healy RegSched Rep - 12/06/2024 4:25 PM EDT PATIENT ONLY HAS RIDES ON TUESDAYS AND THURSDAYS AND YONI HAS NOTHING FRIDAY. JERED AWARE THAT VISIT IS WITH SURENDRA * Telephone Encounter - Swati Healy RegSched Rep - 12/06/2024 3:42 PM EDT WHILE ON THE PHONE WITH PATIENT AMBULANCE SHOWED UP. * Telephone Encounter - Swati Healy RegSched Rep - 12/06/2024 3:28 PM EDT PATIENT CALLED TO SAY HER BLOOD SUGAR WAS IN THE 400'S I MADE HER AN APT FOR FRIDAY, BUT AFTER SPEAKING WITH JERED I CALLED [facility] TO GO CHECK ON HER. I ASKED THEM TO CALL BACK AFTER THEIR CONTACT WITH HER AND WAS ADVISED THEY WOULD TELL PATIENT TO CALL OUR OFFICE, THAT THEY CAN'T DO THAT. I GAVE THEM OFFICE NAME NUMBER AND DR. LANDAVERDE NAME. documented in this encounter Plan of Treatment Upcoming Encounters Date Type Department Care Team (Late st Contact Info) Description 01/13/2025 9:00 AM EDT Office Visit [facility] [address] [place] [phone] Adrianna Landaverde DO [address] [place] [address] documented as of this encounter Visit Diagnoses Not on filedocumented in this encounter Additional Health Concerns Assessment Noted Time PHQ-2 Depression Total Score: 3 08/13/19 24 11:02 AM EDT documented as of this encounter Care Teams Adjunct Professor Of Law Relationship Specialty Start Date End Date Adrianna Landaverde DO [address] [place] [address] PCP - General Family Medicine 08/20/17 documented as of this encounter
--- OUTSIDE RECORDS SUMMARY | 2025-01-07 15:12 | XMS_ITS | Encounter Summary ---
Author Organization [facility] Address [address] [address] Care Team Providers Care Electric Plater Name Role Phone Adrianna Landaverde DO Primary Care Provider [phone] Encounter Details Date Type Department Care Team (Latest Contact Info) Description 12/09/2024 Travel Social History Tobacco Use Types Packs/Day Years [...] Description 01/13/2025 9:00 AM EDT Office Visit [facility] [address] [place] [address] Adrianna Landaverde DO [address] [place] [address] documented as of this encounter Visit Diagnoses Not on filedocumented in this encounter Additional Health Concerns Assessment Noted Time PHQ-2 Depression Total Score: 3 08/13/19 24 11:02 AM EDT documented as of this encounter Care Teams Electric Plater Relationship Specialty Start Date End Date Adrianna Landaverde DO [address] [place], [place] [id number] PCP - General Family Medicine 08/20/17 documented as of this encounter
--- OUTSIDE RECORDS SUMMARY | 2025-01-07 15:12 | XMS_ITS | Encounter Summary ---
[facility] Address [address] [place] [address] Care Team Providers Care Wire Stitcher Name Role Phone Adrianna Landaverde DO Primary Care Provider [phone] Reason for Visit * Reason Onset Date Comments Med Refill 12/02/2024 Encounter Details Date Type Department Care Team (Late st Contact Info) Description 12/02/2024 Refill [facility] [address] [facility] [place] [address] Adrianna Landaverde DO [address] [place] [address] Moderate episode of recurrent major depressive disorder; Pruritus; Age-related osteoporosis without current pathological fracture Social [...] encounter Miscellaneous Notes * Telephone Encounter - Madyson Wilson RegSched Rep - 12/02/2024 3:22 PM EDT Caller: Alicia Bajwa Relationship: Self Best call back number: [phone] Requested Prescriptions: Requested Prescriptions Pending Prescriptions Disp Refills DULoxetine (CYMBALTA) 30 MG capsule 90 capsule 1 hydrOXYzine (ATARAX) 25 MG tablet 60 tablet 2 alendronate (FOSAMAX) 70 MG tablet 4 tablet 0 Pharmacy where request should be sent: [id number] - [place], [place] - [address] - [phone] [facility] [phone] Last office visit with prescribing clinician: 06/25/2024 Last telemedicine visit with prescribing clinician: Visit date not found Next office visit with prescribing clinician: 01/13/2025 Additional details provided by patient: Does the patient have less than a 3 day supply: [x] Yes [] No Would you like a call back once the refill request has been completed: [] Yes [x] No If the office needs to give you a call back, can they leave a voicemail: [] Yes [x] No Ting Zamudio 12/02/24 15:25 EDT documented in this encounter Plan of Treatment Upcoming Encounters Date Type Department Care Team (Late st Contact Info) Description 01/13/2025 9:00 AM EDT Office Visit [facility] [address] [address] Adrianna Landaverde DO [address] [place] [address] documented as of this encounter Visit Diagnoses Diagnosis Moderate episode of recurrent major depressive disorder Pruritus Unspecified pruritic disorder Age-related osteoporosis without current pathological fracture documented in this encounter Additional Health Concerns Assessment Noted Time PHQ-2 Depression Total Score: 3 08/13/19 24 11:02 AM EDT documented as of this encounter Care Teams Wire Stitcher Relationship Specialty Start Date End Date Adrianna Landaverde DO [address] [address] PCP - General Family Medicine 08/20/17 documented as of this encounter
--- OUTSIDE RECORDS SUMMARY | 2025-01-07 15:12 | XMS_ITS | Encounter Summary ---
[facility] Address [address] [place] [address] Care Team Providers Care Wheel Alignment Technician Name Role Phone Adrianna Landaverde DO Primary Care Provider [phone] Encounter Details Date Type Department Care Team ([facility] Contact Info) Description 06/15/2024 Results Follow-Up [facility] MED[facility]INE [address] [facility] [address] Adrianna Landaverde DO [address] [place] [address] Social History Tobacco Use Types Packs/Day Years Used Date Smoking Tobacco: Never Smokeless Tobacco: Never Alcohol Use Standard Drinks/Week Comments No 0 (1 standard drink = 0.6 oz pur e alcohol) PHQ-2 Answer Date Recorded Retired PHQ-9: Brief Depression Severity Measure Score 13 07/04/2022 PHQ-2 Answer Date Recorded Retired PHQ-9: Brief Depression Severity Measure Score 8 08/13/2023 Comments No Sex and Gender Information Value Date Recorded Sex Assigned at Not on file Legal Sex Female 2:27 PM EDT Gender Identity Not on file Sexual Orientation Not on file documented as of this encounter Plan of Treatment Upcoming Encounters Date Type Department Care Team ([facility] Contact Info) Description 01/13/2025 9:00 AM EDT Office Visit [facility] [address] [place] [address] Adrianna Landaverde DO [address] [place] [address] documented as of this encounter Visit Diagnoses Not on filedocumented in this encounter Additional Health Concerns Assessment Noted Time PHQ-2 Depression Total Score: 3 08/13/19 24 11:02 AM EDT documented as of this encounter Care Teams Wheel Alignment Technician Relationship Specialty Start Date End Date Adrianna Landaverde DO [address] [place] [address] PCP - General Family Medicine 08/20/17 documented as of this encounter
--- OUTSIDE RECORDS SUMMARY | 2025-01-07 15:12 | XMS_ITS | Encounter Summary ---
[facility] Address [address] [place] [address] Care Team Providers Care Costume Design Teacher Name Role Phone Adrianna Landaverde DO Primary Care Provider [phone] Reason for Visit * Reason Comments Med Refill Encounter Details Date Type Department Care Team ([facility] Contact Info) Description 11/26/2024 Refill [facility] MED[facility] [address] [place] [address] Adrianna Landaverde DO [address] [place] [address] Age-related osteoporosis without current pathological [...] Department Care Team (Late Contact Info) Description 01/13/2025 9:00 AM EDT Office Visit [facility] MEDICINE [address] [place] [address] Adrianna Landaverde DO [address] [place] [address] documented as of this encounter Visit Diagnoses Diagnosis Age-related osteoporosis without current pathological fracture documented in this encounter Additional Health Concerns Assessment Noted Time PHQ-2 Depression Total Score: 3 08/13/19 24 11:02 AM EDT documented as of this encounter Care Teams Costume Design Teacher Relationship Specialty Start Date End Date Adrianna Landaverde DO [address] [place] [place] [address] PCP - General Family Medicine 08/20/17 documented as of this encounter
--- OUTSIDE RECORDS SUMMARY | 2025-01-07 15:12 | XMS_ITS | Clinical Summary ---
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 Active azelastine (ASTELIN) 0.1 % nasal spray Administer 2 sprays into the nostril(s) as directed by provider 2 (Two) Times a Day. Use in each nostril as directed Active Myrbetriq 50 MG tablet sustained-relea se 24 hour 24 hr tabletIndicatio ns:OAB (overactive bladder) TAKE 1 TABLET BY MOUTH DAILY 30 tablet 1 023 Active oxybutynin XL (DITROPAN-XL) 10 MG 24 hr tablet Take 1 tablet by mouth Daily. 023 Active indomethacin (INDOCIN) 25 MG capsule Take 1 capsule by mouth 2 (Two) Times a Day With Meals. 60 capsule 2 024 Active pantoprazole (PROTONIX) 40 MG EC tablet Take 1 tablet by mouth Daily. 024 Active Continuous Glucose Immigration Judge (Dexcom G6 Immigration Judge) deviceIndicatio ns:Type 2 diabetes mellitus with hyperglycemia, without long-term current use of insulin USE DIRECTED 1 each 024 Active Jardiance 25 MG tablet tabletIndicatio ns:Uncontrolled type 2 diabetes mellitus with hypoglycemia without coma TAKE 1 TABLET BY MOUTH DAILY 90 tablet 1 025 Active DULoxetine (CYMBALTA) 60 MG capsuleIndicati ons:Moderate episode of recurrent major depressive disorder TAKE 1 CAPSULE BY MOUTH ONCE DAILY WITH 30MG CAPSULE 90 capsule 1 025 Active metFORMIN ER (GLUCOPHAGE-XR) 500 MG 24 hr tabletIndicatio ns:Type 2 diabetes mellitus with hyperglycemia, without long-term current use of insulin TAKE 1 TABLET BY MOUTH DAILY WITH BREAKFAST 90 tablet 1 025 Active montelukast (SINGULAIR) 10 MG tabletIndicatio ns:Chronic nonseasonal allergic rhinitis due to pollen TAKE 1 TABLET BY MOUTH EVERY NIGHT 90 tablet 1 025 Active fluocinonide (LIDEX) 0.05 % external solution Apply topically to the appropriate area as directed Daily. 025 Active meclizine (ANTIVERT) 25 MG tabletIndicatio ns:Dizziness Take 1 tablet by mouth 3 (Three) Times a Day As Needed for Dizziness. 15 tablet 1 025 Active Continuous Glucose Transmitter (Dexcom G6 Transmitter) miscIndications :Type 2 diabetes mellitus with hyperglycemia, without long-term current use of insulin Inject 1 Device under the skin into the appropriate area as directed Take As Directed. Use as directed 1 each 3 025 Active Januvia 100 MG tabletIndicatio ns:Type 2 diabetes mellitus with hyperglycemia, without long-term current use of insulin TAKE 1 TABLET BY MOUTH DAILY 90 tablet 1 025 Active traMADol (ULTRAM) 50 MG tabletIndicatio ns:Bilateral hip pain,Cervicalgi a TAKE 1 TABLET BY MOUTH EVERY 8 HOURS NEEDED FOR MODERATE PAIN 60 tablet 025 Active DULoxetine (CYMBALTA) 30 MG capsuleIndicati ons:Moderate episode of recurrent major depressive disorder Take 1 capsule by mouth Daily. 90 capsule 1 025 Active hydrOXYzine (ATARAX) 25 MG tabletIndicatio ns:Pruritus Take 1 tablet by mouth Every 8 (Eight) Hours As Needed for Itching. 60 tablet 2 025 Active Continuous Glucose Sensor (Dexcom G6 Sensor)Indicati ons:Type 2 diabetes mellitus with hyperglycemia, without long-term current use of insulin PLACE 1 SENSOR ON THE SKIN FOR 10 DAYS 9 each 2 025 Active buPROPion (WELLBUTRIN) 75 MG tabletIndicatio ns:Moderate episode of recurrent major depressive disorder Take 1 tablet by mouth 2 (Two) Times a Day. 60 tablet 1 025 Active rosuvastatin (CRESTOR) 20 MG tabletIndicatio ns:Elevated LDL cholesterol level Take 1 tablet by mouth Every Night. 30 tablet 025 Active alendronate (FOSAMAX) 70 MG tabletIndicatio ns:Age-related osteoporosis without current pathological fracture TAKE 1 TABLET BY MOUTH EVERY 7 DAYS, TAKE WITH WATER 30 MINUTES BEFORE FIRST FOOD/DRINK, AVOID LYING DOWN FOR 30 MINUTES AFTER 4 tablet 1 025 Active Continuous Glucose Sensor (Dexcom G6 Sensor)Indicati ons:Type 2 diabetes mellitus with hyperglycemia, without long-term current use of insulin Place on the skin as directed by provider Every 10 (Ten) Days. 9 each 2 024 2024 Discontinued rosuvastatin (CRESTOR) 20 MG tabletIndicatio ns:Elevated LDL cholesterol level TAKE 1 TABLET BY MOUTH ONCE DAILY IN THE EVENING. KEEP UPCOMING APPOINTMENTS 90 tablet 1 025 2024 Discontinued(R eorder) buPROPion (WELLBUTRIN) 75 MG tabletIndicatio ns:Moderate episode of recurrent major depressive disorder TAKE 1 TABLET BY MOUTH TWICE DAILY 60 tablet 1 025 2024 Discontinued(R eorder) alendronate (FOSAMAX) 70 MG tabletIndicatio ns:Age-related osteoporosis without current pathological fracture TAKE 1 TABLET BY MOUTH EVERY 7 DAYS, TAKE WITH WATER 30 MINUTES BEFORE FIRST FOOD/DRINK, AVOID LYING DOWN FOR 30 MINUTES AFTER 4 tablet 025 2024 Discontinued(R eorder) Active Problems Problem Noted Date Diagnosed Date Uncontrolled type 2 diabetes mellitus with hypoglycemia without coma 12/09/2024 Assessment & Plan (12/09/2024 10:07 AM EDT): Diabetes is improving with treatment. Discussed with patient that her A1c demonstrates that her diabetes is well controlled and actually improving. It is unlikely that her blood sugar is contributing to her symptoms. 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 mellitus 06/15 Age-related osteoporosis wit hout current pathological fracture 09/06/2022 Neuropathic pruritus 06/15/2020 NAFLD (nonalcoholic fatty liver disease) 019 Moderate episode of recurrent major depressive d isorder 08/20/2017 Type 2 diabetes mellitus wit hout complication, without long-term current use of insulin 08/20/2017 High cholesterol 08/20/2017 Essential hypertension 08/20/2017 Primary insomnia 08/20/2017 NAIF treated with BiPAP 08/20/2017 Oral lesion 08/20/2017 OAB (overactive bladder) 08/20/2017 Chronic nonseasonal allergic rhinitis due to amarilis yari 08/20/2017 Presbycusis of both ears 08/20/2017 Encounters Date Type Department Care Team Description 01/03/2025 Refill [facility] [address] [place] [address] Adrianna Landaverde, DO Age-related osteoporosis without current pathological fracture 12/24/2024 Refill [facility] [address] [place] [address] Adrianna Landaverde, DO Elevated LDL cholesterol level 12/14/2024 Refill [facility] [address] [place] [address] Adrianna Landaverde, DO Moderate episode of recurrent major depressive disorder 12/13/2024 Refill [facility] [address] [place] [address] Adrianna Landaverde, DO Type 2 diabetes mellitus with hyperglycemia, without long-term current use of insulin 12/13/2024 Telephone [facility] [address] [place] [address] Adrianna Landaverde, DO 12/10/2024 Results Follow-Up [facility] [address] [place], [place] [address] Tigre Mead PA-C 12/09/2024 8:15 AM EDT Office Visit [facility] [address] [place], [place] [address] Tigre Mead PA-C Uncontrolled type 2 diabetes mellitus with hypoglycemia without coma (Primary Dx); CKD stage 2 due to type 2 diabetes mellitus; Abnormal blood sugar 12/09/2024 Refill [facility] [address] [place], [place] [address] Adrianna Landaverde, Age-related osteoporosis without current pathological fracture 12/09/2024 Travel 12/06/2024 Telephone [facility] [address] [place] [address] Adrianna Landaverde DO 12/02/2024 Refill [facility] [address] [place] [address] Adrianna Landaverde DO Moderate episode of recurrent major depressive disorder; Pruritus; Age-related osteoporosis without current pathological fracture 11/26/2024 Refill [facility] [address] [place] [address] Adrianna Landaverde DO Age-related osteoporosis without current pathological fracture 10/13/2024 Refill [facility] [address] [place] [address] Adrianna Landaverde, Bilateral hip pain; Cervicalgia from Last 3 Months Immunizations Immunization Administration Dates Next Due ABRYSVO (RSV, 60+ or pregnan t women 32-36 wks) 03/08/2024 COVID-19 (MODERNA) 1st,2nd,3 rd Dose Monovalent 08/14/2021,01/20/2021,05/24/2020,04/26 FLUAD TRI 65YR+ 02/09/2024 Fluad Quad 65+ 11/27/2021,01/02/2021 Fluzone >6mos 12/04/2010 Fluzone High-Dose 65+YRS 12/29/2019,01/19/2019 Fluzone High-Dose 65+yrs 02/10/2023,12/29/2019 Hep A / Hep B 01/25/2020,01/03/2020 Hepatitis A 12/16/2018 Pneumococcal Conjugate 13-Va lent (PCV13) 01/19/2019,03/17/2015 Pneumococcal Conjugate 20-Va lent (PCV20) 06/19/2022 Pneumococcal Polysaccharide (PPSV23) 01/26/2018 Shingrix 10/03/2022,07/31/2022 Tdap 04/05/2014 Family History Medical History Relation Name Comments Hyperlipidemia Maternal Grandmother Stroke Maternal Grandmother Arthritis Mother Breast cancer Mother unknown Diabetes Mother Hypertension Mother Obesity Mother Liver disease Sister Ovarian cancer Neg Hx Relation Name Status Comments Maternal Grandmother Mother Sister Social History Tobacco Use Types Packs/Day Years [...] Mass Index 31.13 12/09/2024 8:10 AM EDT Plan of Treatment Upcoming Encounters Date Type Department Care Team (Late st Contact Info) Description 01/13/2025 9:00 AM EDT Office Visit [facility] [address] [place], [place] [address] Adrianna Landaverde DO [address] [place], [place] [address] Health Maintenance Due Date Last Done Comments COLOGUARD 1989 COLON CANCER SCREENING 5 YEA R SIGMOIDOSCOPY [address] COLONOGRAPHY 1989 FECAL OCCULT BLOOD TEST 1989 FIT Testing (1 year) 1989 DIABETIC EYE EXAM 02/11/2024 02/10/2023, , 08/27/2018 (Patient-Reported (Performed Externally)), Additional history exists TDAP/TD VACCINES (2 - Td or Tdap) 04/05/2024 015 ANNUAL WELLNESS VISIT 08/12/2024 08/13/2023 , 08/13/2023, 07/04/2022, Additional history exists DXA SCAN 08/30/2024 08/30/2022, 05/25/2020 INFLUENZA VACCINE 10/15/2024 02/09/2024, , 11/27/2021, Additional history exists COVID-19 Vaccine (7 - Modern a risk season) 2024 02/09/2024, 02/26/2023, 08/14/2021, Additional history exists HEMOGLOBIN A1C 06/08/2025 12/09/2024, 05/16, 12/10/2023, Additional history exists LIPID PANEL 06/11/2025 06/11/2024, 07/16, 02/10/2023, Additional history exists DIABETIC FOOT EXAM 06/25/2025 06/25/2024, 1 03/18/2019, 12/30/2018, Additional history exists URINE MICROALBUMIN-CREATININ E RATIO (uACR) 06/25/2025 06/25/2024, 11/20/2017 (Declined) COLONOSCOPY 01/01/2033 01/01/2023, 12/15, 01/01/2023, Additional history exists COLORECTAL CANCER SCREENING 01/01/2033 Pneumococcal Vaccine 50+ Completed 023, 01/19/2019, 01/26/2018, Additional history exists ZOSTER VACCINE Completed 10/03/2022, 07/31/2022 MAMMOGRAM Discontinued 09/26/2023, 09/14, 08/30/2022, Additional history exists RSV Vaccine - Adults Completed 03/08/2024 Procedures Procedure Name Priority Date/Time Associated Diagnosis [...] 12/09/2024 8:16 AM EDT Abnormal blood sugar POC ALBUMIN/CREATININE RATIO Routine 06/25/2024 9:02 AM EDT Type 2 diabetes mellitus with hyperglycemia, without long-term current use of insulin LIPID PANEL W/ CHOL/HDL RATIO Routine 06/11/2024 11:08 AM EDT Type 2 diabetes mellitus with hyperglycemia, without long-term current use of insulin Elevated LDL cholesterol level MAMMO SCREENING DIGITAL TOMOSYNTHESIS BILATERAL W CAD Routine 09/25/2023 9:33 AM EDT Visit for screening mammogram SCANNED - EYE EXAM 02/10/2023 SCANNED - COLONOSCOPY 01/01/2023 DEXA BONE DENSITY AXIAL Routine 08/30/2022 9:51 AM EDT Postmenopausal SCANNED - INFLUENZA 01/19/2019 from Last 3 Months or Most Recently Relevant to Health Maintenance Results * (ABNORMAL) CBC & Differential (12/09/2024 9:01 AM EDT) WBC 9.77 3.40 - 10.80 10*3/mm3 [facility] [...] - 12/10/2024 3:07 AM EDT Performed at: [address] [address] [place] [id number] Pattern Marking Supervisor: Drew Dos Santos MD, Phone: [phone] Patient Fasting: N Tigre Mead PA-C LAB BLOOD ORDERABLES Final R esult [facility] (AMBULATORY) [address] [place] [address], [facility] [address] [place] [address], * (ABNORMAL) Comprehensive Metabolic Panel (12/09/2024 9:01 AM EDT) Pathologist [facility] Glucose 132(H) 65 - 99 mg/dL [facility] [...] - 12/10/2024 3:07 AM EDT Performed at: [address] [place] [id number] Pattern Marking Supervisor: Drew Dos Santos MD, Phone: [phone] Patient Fasting: N us Tigre Mead PA-C LAB BLOOD ORDERABLES Final R esult Performing Organization Address City/[facility]/ZIP Co de Phone Number [facility] ([facility]) [address] [place] [address], [place] [phone] [facility] [address] [place] [id number], [place] [phone] * (ABNORMAL) POC Glycosylated Hemoglobin (Hb A1C) (12/09/2024 8:48 AM EDT) Hemoglobin A1C 7.2(A) 4.5 - 5.7 % [facility] Lot Number [id number] [facility] Expiration Date 06/17/2026 [facility] Blood 12/09/2024 8:48 AM EDT us Tigre Mead PA-C POINT OF CARE TEST ORDERABLE S Final Result [facility]
[address] [place] [address], [place] [phone] * POCT Glucose (12/09/2024 8:16 AM EDT) Glucose 110 70 - 130 mg/dL Blood 12/09/2024 8:16 AM EDT Tigre Mead PA-C POINT OF CARE TEST ORDERABLE S Final Result * (ABNORMAL) POC Albumin/Creatinine Ratio Urine (06/25/2024 9:02 AM EDT) POC ALBUMIN, URINE 30 mg/L POC CREATININE, URINE 50 mg/dL POC Urine Albumin Creatinine Ratio 30-300 <30 mg/g Lot Number [id number] Expiration Date 04/16/2025 Urine 06/25/2024 9:02 AM EDT Adrianna Landaverde DO POINT OF CARE TEST ORDERABL ES Final Result * Lipid Panel With / Chol / HDL Ratio (06/11/2024 11:08 AM EDT) Total Cholesterol 142 100 - 199 mg/dL [facility] Triglycerides 146 0 - 149 mg/dL [facility] HDL Cholesterol 46 >39 mg/dL [facility] VLDL Cholesterol Rashid 25 5 - 40 mg/dL [facility] LDL Chol Calc (NIH) 71 0 - 99 mg/dL [facility] Chol/HDL Ratio 3.1 0.0 - 4.4 ratio [facility] Comment: T. Chol/HDL Ratio Men Women 1/2 Avg.Risk 3.4 3.3 Avg.Risk 5.0 4.4 2X Avg.Risk 9.6 7.1 3X Avg.Risk 23.4 11.0 Blood 06/11/2024 11:0 8 AM EDT 06/11/2024 Narrative [facility] ([facility]) - 06/12/2024 4:07 AM EDT Performed at: [facility] [id number] Pattern Marking Supervisor: Jose E Edwards PhD, Phone: [phone] Patient Fasting: Y Adrianna Landaverde DO LAB BLOOD ORDERABLES Final Result [facility] ([facility]) [address] [place] [address], [place] [phone] [facility] [address] [place] [address], [place] [phone] * Mammo Screening Digital Tomosynthesis Bilateral With CAD (09/25/2023 9:33 AM EDT) Anatomical Region Laterality Modality Breast N/A Mammography 09/26/2023 2:39 PM EDT Impressions 09/26/2023 2:39 PM EDT No findings suspicious for malignancy. ACR BI-RADS CATEGORY: 1, NEGATIVE RECOMMENDATION: Yearly mammogram, yearly clinical breast exam, and encourage self breast awareness. CAD was used. The standard false negative rate of mammography is between 10% and 25%. Complex patterns or increased breast density will markedly elevate the false negative rate of mammography. A letter, in lay terminology, with the results of this exam will be mailed to the patient. At our facility, a triangular marker is positioned over a palpable area of concern indicated by the patient. A douglas marker is placed over a visible skin lesion. A linear marker indicates a scar. If there is a palpable area of concern, biopsy should be considered regardless of imaging findings. This report was finalized on 09/26/2023 2:[address] Cathie Marie MD. Narrative 09/26/2023 2:39 PM EDT DIGITAL SCREENING MAMMOGRAM WITH TOMOSYNTHESIS HISTORY: Routine screening. The patient has had an interval 14 pound weight loss. IMAGE COMPARISON: 08/30/2022, 04/09/2019, 08/28/2017. TECHNIQUE: Low dose full field digital breast tomosynthesis imaging was performed with 2D and 3D acquisitions consisting of bilateral CC and MLO views. FINDINGS: There are scattered areas of fibroglandular density. The fibroglandular pattern appears stable. There is no mass, worrisome microcalcifications, or architectural distortion to suggest development of malignancy. us Adrianna Landaverde DO [facility] MAMMOGRAPHY ORDERABLES Final Result * SCANNED - EYE EXAM (02/10/2023) Anatomical Region Laterality Modality Other us Adrianna Landaverde DO CHART REVIEW TABS Final Result * SCANNED - COLONOSCOPY (01/01/2023) Adrianna Audrey Landaverde DO CHART REVIEW TABS Final Result * DEXA Bone Density Axial (08/30/2022 9:51 AM EDT) Anatomical Region Laterality Modality Wrist, Hip, L-spine N/A Other 08/30/2022 10:3 1 AM EDT Impressions 08/30/2022 6:00 PM EDT Osteoporosis of the right femoral neck. Osteopenia of the left femoral neck, and total right hip. The ten year fracture risk assessment was not calculated because some T-scores are at or below -2.5. All the treatment decisions require clinical judgment and consideration of individual patient factors, including patient preferences, co-morbidities, previous drug use, risk factors not captured in the FRAX model (frailty, falls, vitamin D deficiency, increased bone turnover, interval significant decline in bone density) and possible under or over estimation of fracture risk by FRAX. Approaches to reduce osteoporosis related fracture risk include optimizing calcium and vitamin D status, appropriate weight bearing exercises and fall-prevention measurements. The National Osteoporosis Foundation recommends (http://www.nof.org/hcp/practice/vebzvygg-jah-qwfcpeob-guidelines/clinicians-nereyda de) that FDA-approved medical therapies be considered in postmenopausal women and men aged equal or greater than 50 years with : a) hip or vertebral (clinical or morphometric) fracture; b) T-score of -2.5 or less at the spine or hip; c) Ten-year fracture probability by FRAX of greater than 3% for hip fracture of greater than 20% for major osteoporotic fracture. Secondary causes of bone loss should be evaluated if clinically indicated since the etiology of low BMD cannot be determined by BMD measurement alone. FOLLOWUP: Consider repeating the study in 2-3 years to reassess the patient's status or sooner if there is some new clinical indication. INTERVAL CHANGE: There were no equivalent studies available for comparison. At this facility, the least significant change in the BMD at the left hip with 95% confidence is 0.783320 gm/cm2 at the hip and 0.258325 g/cm2 at the lumbar spine. Electronically Signed: Olaf Tsai 08/30/2022 6:00 PM EDT Workstation ID: [id number] Narrative 08/30/2022 6:00 PM EDT DUAL-ENERGY X-RAY ABSORPTIOMETRY (DXA) INDICATION: Postmenopausal, screening for osteoporosis, height loss, history of glucocorticoids, cancer, asthma or emphysema, hysterectomy COMPARISON: There are no equivalent studies available for comparison PROCEDURE: A DXA scan was performed using a Hologic densitometer. The lumbar spine L1-L4 was evaluated as well as bilateral total hip. The T-score compares the patient's bone mineral density with the peak bone mass of young normal patients. According to criteria established by the World Health Organization, patients with T-scores between 1.0 and 2.5 standard deviations BELOW the mean are osteopenic (low bone mass). Patients with T-scores EQUAL TO OR GREATER than 2.5 standard deviations below the mean are osteoporotic. The Z-score compares the patient bone mineral density with age and sex matched peers. According to the International Society for Clinical Densitometry's 2007 consensus conference: In women prior to menopause and men less than age 50, Z-scores, not T-scores are preferred. A Z-score of -2.0 or lower is defined as below the expected range for age and a Z-score above -2.0 is within the expected range for age. The WHO diagnostic criteria may be applied in women in the menopausal transition. Osteoporosis cannot be diagnosed in men under age 50 on the basis of BMD alone. TECHNICAL QUALITY: The study is of good technical quality. RESULTS: Lumbar Spine: The BMD measured in the L1-L4 region is 1.084 g/cm2. The average T-score is 0.3. The Z-score is 2.9. Total Hip: The BMD measured at the left total proximal femur is 0.871 g/cm2. The T-score is -0.6. The Z-score is 1.4. Femoral Neck: The BMD measured at the left femoral neck is 0.622 g/cm2. The T-score is -2.0. The Z-score is 0.2. Total Hip: The BMD measured at the right total proximal femur is 0.772 g/cm2. The T-score is -1.4. The Z-score is 0.6. Femoral neck: The BMD measured at the right femoral neck is 0.475 g/cm2. The T score is -3.4. The Z score is -1.1. Procedure Note Alejandra Anne PA - 08/30/2022 DUAL-ENERGY X-RAY ABSORPTIOMETRY (DXA) INDICATION: Postmenopausal, screening for osteoporosis, height loss,history of glucocorticoids, cancer, asthma or emphysema, hysterectomy COMPARISON: There are no equivalent studies available for comparison PROCEDURE: A DXA scan was performed using a Hologic densitometer. The lumbar spine L1-L4 was evaluated as well as bilateral total hip. The T-score compares the patient's bone mineral density with the peak bonemass of young normal patients. According to criteria established by the[facility], patients with T-scores between 1.0 and 2.5standard deviations BELOW the mean are osteopenic (low bone mass). Patients with T-scores EQUAL TO ORGREATER than 2.5 standard deviations below the mean are osteoporotic. The Z-score compares the patient bone mineral density with age and sexmatched peers. According to the International Society for ClinicalDensitometry's 2007 consensus conference: In women prior to menopause andmen less than age 50, Z-scores, not T-scores are preferred. A Z-score of -2.0 or lower is defined as belowthe expected range for age and a Z-score above -2.0 is within theexpected range for age. The WHO diagnostic criteria may be applied inwomen in the menopausal transition. Osteoporosis cannot be diagnosed in men under age 50 on the basis of BMDalone. TECHNICAL QUALITY: The study is of good technical quality. RESULTS: Lumbar Spine: The BMD measured in the L1-L4 region is 1.084 g/cm2. Theaverage T- score is 0.3. The Z-score is 2.9. Total Hip: The BMD measured at the left total proximal femur is 0.871g/cm2. The T-score is -0.6. The Z-score is 1.4. Femoral Neck: The BMD measured at the left femoral neck is 0.622 g/cm2.The T- score is -2.0. The Z-score is 0.2. Total Hip: The BMD measured at the right total proximal femur is 0.772g/cm2. The T-score is -1.4. The Z-score is 0.6. Femoral neck: The BMD measured at the right femoral neck is 0.475 g/cm2.The T score is -3.4. The Z score is -1.1. IMPRESSION: Osteoporosis of the right femoral neck. Osteopenia of the left femoralneck, and total right hip. The ten year fracture risk assessment was not calculated because someT-scores are at or below -2.5. All the treatment decisions require clinical judgment and consideration ofindividual patient factors, including patient preferences, co-morbidities,previous drug use, risk factors not captured in the FRAX model (frailty,falls, vitamin D deficiency, increased bone turnover, interval significant decline in bone density) andpossible under or over estimation of fracture risk by FRAX. Approaches toreduce osteoporosis related fracture risk include optimizing calcium andvitamin D status, appropriate weight bearing exercises and fall-prevention measurements. The NationalOsteoporosis Foundation recommends(http://www.nof.org/hcp/practice/hcbsiphk-dcl-malhfhrc-guidelines/clin ician s-guide) that FDA-approved medical therapies be considered in postmenopausal women and men aged equal or greater than 50 years with :a) hip or vertebral (clinical or morphometric) fracture; b) T-score of-2.5 or less at the spine or hip; c) Ten-year fracture probability by FRAXof greater than 3% for hip fracture of greater than 20% for major osteoporotic fracture. Secondary causes of bone loss should be evaluated if clinically indicatedsince the etiology of low BMD cannot be determined by BMD measurementalone. FOLLOWUP: Consider repeating the study in 2-3 years to reassess thepatient's status or sooner if there is some new clinical indication. INTERVAL CHANGE: There were no equivalent studies available forcomparison. At this facility, the least significant change in the BMD at the left hipwith 95% confidence is 0.013671 gm/cm2 at the hip and 0.893706 g/cm2 atthe lumbar spine. 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
--- OUTSIDE RECORDS SUMMARY | 2025-01-07 16:11 | XMS_ITS | CCD ---
Author Organization Unknown Care Team Providers Care Transport Rn Name Role Phone Unavailable Primary Care Provider Unavailabl e Unavailable Chronic Care Management Unavaila ble Summary Purpose DataExchange Insurance Providers Payer name Policy type / Coverage type Covered alliance party ID Effective Begin Date Effective End Date [facility] [id number] Unknown Unknown Family History Family History data not found Medication Administered No Medication Administered data Reason For Visit No Reason For Visit data Medical Equipment No Medical Equipment data Advance Directives No Advance Directive data
== END 2025-01-07 23:59 | disposition home or self-care (01) ==
LOC: RAD 15:09
PROVIDERS: PCP Family Medicine; Visit Provider Specialist
DX: M47.816 Spondylosis without myelopathy or radiculopathy, lumbar region (principal)
CPT/HCPCS: 72100

== ENCOUNTER 2025-02-01 08:44 | Outpatient (CLI) | payer MEDICARE, MEDICAID, SELFPAY ==
--- NOTE | 2025-02-01 09:00 | XR_ITS ---
FINAL REPORT CLINICAL HISTORY: SCREENING FINDINGS: Using L1-4, the bone mineral density of the spine is 1.176 g/cm2, corresponding to T-score of 1.2. Using the left hip, the bone mineral density of the femoral neck is 0.704 g/cm2, corresponding to a T-score of -1.3. Using the right hip, the bone mineral density of the femoral neck is 0.542 g/cm2, corresponding to a T-score of -2.8. NOTE: T-score: Standard deviation compared with peak bone mass of young adult mean. *Following the recommendations of the International Society of Bone densitometry, classification of hip BMD is based on the lower of two T-scores; total hip or femoral neck. IMPRESSION: Normal bone mineral density of the lumbar spine. Diminished bone mineral density of the left hip, corresponding to osteopenia. Diminished bone mineral density of the right hip, corresponding to osteoporosis. Reviewed, Interpreted and Dictated by John Pérez MD Transcribed by Rebecca Florian Authenticated and [facility]
== END 2025-02-01 23:59 | disposition home or self-care (01) ==
LOC: RAD 08:45
PROVIDERS: PCP Family Medicine; Visit Provider Family Medicine
DX: M81.0 Age-related osteoporosis without current pathological fracture (principal)
CPT/HCPCS: 77080

== ENCOUNTER 2025-02-02 13:52 | Outpatient (RCR) | payer MEDICARE, MEDICAID, SELFPAY | END 2025-02-02 23:59 | disposition home or self-care (01) | LOC: PT 13:52 | PROVIDERS: PCP Family Medicine; Visit Provider Family Medicine | DX: R26.81 Unsteadiness on feet (principal); R53.1 Weakness; Z91.81 History of falling | CPT/HCPCS: 97162 ==

== ENCOUNTER 2025-03-14 09:00 | Outpatient (RCR) | payer MEDICARE, MEDICAID, SELFPAY | END 2025-03-14 23:59 | disposition home or self-care (01) | LOC: PT 09:00 | PROVIDERS: PCP Family Medicine; Visit Provider Family Medicine | DX: Z91.81 History of falling (principal) | CPT/HCPCS: 97530 ==